=== PATIENT | female | born 1995 | race Caucasian/White ===

== ENCOUNTER 2024-03-23 22:54 | Emergency (ER) | payer SELFPAY ==
[2024-03-23 22:58] VITALS: BP 144/87; PULSE 96; TEMP 37.1; O2SAT 99; BMI 44.4
--- NOTE | 2024-03-23 23:14 | ED_ITS ---
HPI - General Chief complaint: Vaginal Bleeding Stated complaint: Time Seen by Provider: 03/23/24 23:03 Source: patient Mode of arrival: walk-in Limitations: no limitations History of Present Illness HPI Narrative: [id number] presents after passing large clots at work. States she is 13 weeks . no complications or pain until tonight. Convinced she had a miscarriage and wanted to be checked. Otherwise no complaint Related Data Home Medications ?Medication ?Instructions ?Recorded ?Confirmed No Known Home Medications 03/23/24 03/23/24 Allergies Allergy/AdvReac Type Severity Reaction Status Date / Time sulfamethoxazole Allergy Unknown Hives Verified 03/23/24 23:02 [From Bactrim] trimethoprim [From Bactrim] Allergy Unknown Hives Verified 03/23/24 23:02 Review of Systems ROS Status of ROS 10 or more systems reviewed and unremark able except as noted in history and below Exam Constitutional Vital Signs, click to edit/add: Last Vital Signs Temp 98.7 F 03/23/24 22:58 Pulse 96 H 03/23/24 22:58 Resp 18 03/23/24 22:58 BP 144/87 H 03/23/24 22:58 Pulse Ox 99 03/23/24 22:58 O2 Del Method Room Air 03/23/24 22:58 Common normals: no apparent distress, average body habitus, oriented x3, no limitations, healthy appearing, alert and well nourished [facility] Common normals: normocephalic and head/scalp atraumatic Eye Common normals: EOMs intact bilaterally and conjunctivae normal Respiratory Common normals: normal respiratory effort, no retractions and no use of accessory muscles Cardio Common normals: regular rate, regular rhythm, S1 normal heart sound and S2 normal heart sound GI Common normals: Normal to inspection, nondistended, normoactive bowel sounds present and soft to palpation Other: mod amount of blood in the vaginal vault . no acitive bleeding normal exam external genitalia Extremity Common normals: normal to inspection and full ROM Neuro Common normals: oriented x3, CN's II-XII intact bilaterally, moves all extremities and no focal motor deficits Psych Appearance: grossly normal Course Vital Signs Vital signs: Vital Signs Temperature 98.7 F 03/23/24 22:58 Pulse Rate 96 H 03/23/24 22:58 Respiratory Rate 18 03/23/24 22:58 Blood Pressure 144/87 H 03/23/24 22:58 Pulse Oximetry 99 03/23/24 22:58 Oxygen Delivery Method Room Air 03/23/24 22:58 Temperature 98.7 F 03/23/24 22:58 Pulse Rate 96 H 03/23/24 22:58 Respiratory Rate 18 03/23/24 22:58 Blood Pressure 144/87 H 03/23/24 22:58 Pulse Oximetry 99 03/23/24 22:58 Oxygen Delivery Method Room Air 03/23/24 22:58 MDM - OB/Uterine Contractions MDM Narrative Medical decision making narrative: [id number] 13 weeks presents after passing large clots of blood at work. Speculum exam with residual blood in the vault. Otherwise exam unremarkable. VSS and H/H normal . Patient given Rhogam shot and discharged. she will follow up with her OB tomorrow. Strongly suspect miscarriage Lab Data Labs: Lab Results 03/23/24 Range/Units 23:20 WBC 9.0 (4.0-11.0) 10^3/uL RBC 4.31 (4.20-5.40) 10^6/uL Hgb 12.2 (12.0-16.0) g/dL Hct 37.4 (36.0-48.0) % MCV 86.8 (81.0-99.0) fL MCH 28.3 (26.7-34.0) pg MCHC 32.6 (29.9-35.2) g/dL RDW 14.4 (11.0-15.0) % Plt Count 224 (150-450) 10^3/uL MPV 11.8 (9.5-13.5) fL Neut % (Auto) 58.0 (43.0-75.0) % Lymph % (Auto) 34.4 (20.5-60.0) % [place] % (Auto) 6.6 (1.7-12.0) % Eos % (Auto) 0.6 L (0.9-7.0) % Baso % (Auto) 0.2 (0.2-2.0) % Neut # (Auto) 5.2 (1.4-6.5) 10^3/uL Lymph # (Auto) 3.1 (1.2-3.8) 10^3/uL [place] # (Auto) 0.6 (0.3-0.8) 10^3/uL Eos # (Auto) 0.1 (0.0-0.7) 10^3/uL Baso # (Auto) 0.0 (0.0-0.1) 10^3/uL Abs Immat Gran (auto) 0.02 (0.00-0.03) 10^3/uL Imm/Tot Granulo (auto) 0.2 (0.0-0.5) % Sodium 136 (136-145) mmol/L Potassium 3.7 (3.5-5.1) mmol/L Chloride 102 (98-107) mmol/L Carbon Dioxide 24.6 (21.0-32.0) mmol/L Anion Gap 13.1 BUN 9.0 (7.0-18.0) mg/dL Creatinine 0.68 (0.55-1.02) mg/dL Est GFR ( Amer) >60 (>=60) Est GFR (Non-Af Amer) >60 (>=60) BUN/Creatinine Ratio 13.2 Glucose 98 (74-106) mg/dL Calcium 8.8 (8.5-10.1) mg/dL Discharge Plan Discharge Stand Alone Forms: Portal Instructions Chief Complaint: Vaginal Bleeding Clinical Impression: Threatened Patient Disposition: Home, Self-Care Prescriptions / Home Meds: No Action No Known Home Medications Print Language: [place] Instructions: Threatened Miscarriage (ED) Additional Instructions: follow up with your doctor tomorrow as discussed Referrals: XIAO STILL [Primary Care Provider] - 1 week
[2024-03-23 23:29] LABS: Basophils Percent Auto 0.2 % (0.2-2.0); Eosinophils Absolute Auto 0.1 10^3/uL (0.0-0.7); Eosinophils Percent Auto 0.6 % (0.9-7.0); Hematocrit 37.4 % (36.0-48.0); Hemoglobin 12.2 g/dL (12.0-16.0); Immature Granulocytes Abs Auto 0.02 10^3/uL (0.00-0.03); Immature Granulocytes Pct Auto 0.2 % (0.0-0.5); Lymphocytes Absolute Auto 3.1 10^3/uL (1.2-3.8); Lymphocytes Percent Auto 34.4 % (20.5-60.0); Mean Corpuscular HGB Conc 32.6 g/dL (29.9-35.2); Mean Corpuscular Hemoglobin 28.3 pg (26.7-34.0); Mean Corpuscular Volume 86.8 fL (81.0-99.0); Mean Platelet Volume 11.8 fL (9.5-13.5); Monocytes Absolute Auto 0.6 10^3/uL (0.3-0.8); Monocytes Percent Auto 6.6 % (1.7-12.0); Neutrophils Absolute Auto 5.2 10^3/uL (1.4-6.5); Platelet Count 224 10^3/uL (150-450); Red Blood Count 4.31 10^6/uL (4.20-5.40); Red Cell Distribution Width 14.4 % (11.0-15.0)
[2024-03-23 23:38] LABS: Anion Gap 13.1; BUN Creatinine Ratio 13.2; Calcium 8.8 mg/dL (8.5-10.1); Carbon Dioxide 24.6 mmol/L (21.0-32.0); Chloride 102 mmol/L (98-107); Estimated GFR (African America >60 (>=60); Estimated GFR (Non-African Ame >60 (>=60); Glucose 98 mg/dL (74-106); Potassium 3.7 mmol/L (3.5-5.1); Sodium 136 mmol/L (136-145)
[2024-03-23] MEDS: RHO(D) IMMUNE GLOBULIN 1,500 UNIT SYRINGE 1500 UNIT IM (23:54)
[2024-03-24 00:33] LABS: HCG Quantitative 32806 mIU/mL
== END 2024-03-24 00:07 | disposition home or self-care (01) ==
PROVIDERS: Emergency Provider Internal Medicine; PCP Family Medicine
DX: O20.0 Threatened abortion (principal); Z3A.13 13 weeks gestation of pregnancy
CPT/HCPCS: 36415; 80048; 84702; 84703; 85025; 96372; 99284; J2790

== ENCOUNTER 2024-07-24 07:29 | Outpatient (RCR) | payer OTHER, SELFPAY ==
--- NOTE | 2024-07-24 11:35 | US_ITS ---
[address] [address] Patient Name: KARIME CARRION MRN: [id number] date: 1995 Sex: F Assigned Patient Location: US Current Patient Location: US Accession/Order Number: [id number] Exam Date: 07/24/2024 11:40 Report Date: 07/24/2024 12:58 At the request of: RAGHU BLACK Procedure: US OB growth EXAMINATION: US OB growth HISTORY: Related Condition In Second Trimester COMPARISON: No relevant comparison available. FINDINGS: Heart Rate: 131.71 bpm Amniotic Fluid Volume: 17.0 cm, largest fluid pocket 4.7 cm Number: 1 Position: Cephalic presentation, longitudinal lie BIOMETRY: BPD: 7.72 cm; 31 weeks 0 days; 37.30 % HC: 28.60 cm; 31 weeks 3 days; 24.70 % AC: 26.04 cm; 31 weeks 1 day; 23.30 % FL: 5.56 cm; 29 weeks 2 days; 4.80 % EFW: 1507.09 g; 13.60 %, 3 lbs. 5 oz. FL/AC: 21.36 FL/BPD: 72.09 HC/AC: 1.10 GESTATIONAL AGE: Age by EDC: 31 weeks 0 days [place]ILLARY by EDC: 2024-09-25 Age by US: 30 weeks 3 days HILLARY by US: 2024-09-29 US/US OB growth IMPRESSION: Femur length at the 5th percentile, otherwise normal interval growth Electronically authenticated by: LESLY SARAVIA Date: 07/24/2024 12:58
[2024-07-24 13:00] VITALS: BP 131/79; PULSE 87; TEMP 36.6; O2SAT 96
[2024-07-24] MEDS: RHO(D) IMMUNE GLOBULIN 1,500 UNIT SYRINGE 1500 UNIT IM (13:16)
== END 2024-07-28 08:38 | disposition home or self-care (01) ==
LOC: US 07:29
PROVIDERS: PCP Family Medicine; Visit Provider Midwife
DX: O26.893 Other specified pregnancy related conditions, third trimester (principal); Z67.91 Unspecified blood type, Rh negative; O26.93 Pregnancy related conditions, unspecified, third trimester; Z3A.31 31 weeks gestation of pregnancy
CPT/HCPCS: 36415; 76816; 86850; 86900; 86901; 96372; J2791

== ENCOUNTER 2024-07-31 15:54 | Observation (INO) | payer OTHER, SELFPAY ==
[2024-07-31 16:11] VITALS: BP 137/72; PULSE 88; TEMP 37.1
--- NOTE | 2024-07-31 21:00 | US_ITS ---
The [address] [address] Patient Name: KARIME CARRION MRN: [id number] date: 1995 Sex: F Assigned Patient Location: [facility] Current Patient Location: Accession/Order Number: [id number] Exam Date: 07/31/2024 21:10 Report Date: 08/01/2024 01:03 At the request of: RAGHU BLACK Procedure: US OB placenta US PELVIS: OB Greater than 14 weeks HISTORY: 28 year old G 5 P 4 AB 0 female presents for US evaluation. Patient fell at 1430. LMP: Not provided TECHNIQUE: Ultrasound performed of the pelvis using static images with rankin scale, M-mode and color doppler. This exam is performed in the emergency room setting to evaluate viability. As such, it is not protocoled to evaluate anatomy as that should be performed on an outpatient basis at the patient's [facility] office. COMPARISON: None. FINDINGS: Summary: Number of Fetuses: Single fetus in cephalic position. Placenta: Anterior Grade 1. Placental lakes demonstrated. heart: 131 bpm. Cervix: Cervix not well visualized due to shadowing. SIMRAN: Q1: 2.9 cm Q2: 7.2 cm Q3: 2.5 cm Q4: 5.7 cm Total SIMRAN: 18.3 cm. (Normal 8-18 cm)* Largest pocket: (less than 8 cm) US/US OB placenta IMPRESSION: 1. Viable Dougherty fetus IUP 2. SIMRAN equals 18.3 cm Electronically authenticated by: NEIL SADLER Date: 08/01/2024 01:03
== END 2024-07-31 22:40 | disposition home or self-care (01) ==
LOC: FBC 15:57
PROVIDERS: Admitting Provider Midwife; PCP Family Medicine; Visit Provider Midwife
DX: Z03.79 Encounter for other suspected maternal and fetal conditions ruled out (principal)
CPT/HCPCS: 76815; G0378; G0379

== ENCOUNTER 2024-09-15 10:04 | Outpatient (REF) | payer OTHER, SELFPAY ==
[2024-09-17 16:09] LABS: Ova + Parasite Exam Final report (.)
--- OUTSIDE RECORDS SUMMARY | 2024-09-18 10:26 | XMS_ITS | CCD ---
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 URS [facility] Absolute Jewell # 0.75 [facility] RS [facility] Basophils (Bld) [#/Vol] 0.04 10*3/uL [facility] Basophils/100 WBC (Bld) 1 % 0 - 2 % [facility] Eosinophils/100 WBC (Bld) 4 % 1 - 4 % [facility] Hematocrit (Bld) [Volume fraction] 42.0 % 36.3 - 47.1 % [facility] Hemoglobin (Bld) [Mass/Vol] 13.7 g/dL 11.9 - 15.1 g/dL [facility] Immature granulocytes/100 WBC (Bld) 0 % 0 [facility] Lymphocytes/100 WBC (Bld) 32 % 24 - 43 % [facility] MCH (RBC) [Entitic mass] 28.6 pg 25.2 - 33.5 pg [facility] MCHC (RBC) [Mass/Vol] 32.6 g/dL 28.4 - 34.8 g/dL [facility] MCV (RBC) [Entitic vol] 87.7 fL 82.6 - 102.9 fL [facility] Monocytes/100 WBC (Bld) 9 % 3 - 12 % [facility] NRBC Automated 0.0 0.0 per 100 WBC [facility] Platelet distribution width (Bld) [Ratio] 13.7 % 11.8 - 14.4 % [facility] Platelet mean volume (Bld) [Entitic vol] 10.8 fL 8.1 - 13.5 fL [facility] Platelets (Bld) [#/Vol] 283 10*3/uL [facility] RBC (Bld) [#/Vol] 4.79 10*6/uL 3.95 - 5.1 1 m/uL [facility] Segmented neutrophils/100 WBC (Bld) 54 % 36 - 65 % [facility] Segs Absolute 4.89 [facility] WBC (Bld) [#/Vol] 8.9 10*3/uL [facility] CBC with Diffon 10-14-2022 Abs. Basophil 0.04 k/uL Normal 0.00-0.20 [facility] Comment on above: Performed By: #### T YS #### [facility] [address] [place] [address] [employer] Operator: Kali Gray MD Abs.Imm.Granulocyte <0.03 Normal 0.00-0.30 [facility] Comment on above: Performed By: #### T YS #### [address] [place], [place] [id number] [employer] Operator: Kali Gray MD Abs.Neutrophil (Seg) 4.89 k/uL Normal 1.50-8.10 [facility] Comment on above: Performed By: #### T YS #### [address] [place], [place] [id number] [employer] Operator: Kali Gray MD Basophils/100 WBC (Bld) 1 % Normal 0-2 [facility] Comment on above: Performed By: #### T YS #### [address] [place], [place] [phone] [employer] Operator: Kali Gray MD Eosinophils (Bld) [#/Vol] 0.36 10*3/uL Normal 0.00-0.44 [facility] Comment on above: Performed By: #### T YS #### [facility] [address] [place] [address] [place] [address] [employer] Operator: Kali Gray MD Eosinophils/100 WBC (Bld) 4 % Normal 1-4 [facility] Comment on above: Performed By: #### T YS #### [facility] [address] [place] [address] Dr. [place], [facility]83 [employer] Operator: Kali Gray MD Erythrocyte distribution width (RBC) [Ratio] 13.7 % Normal 11.8-14.4 [facility] Comment on above: Performed By: #### T YS #### [facility] [address] [place] [address] Dr. [place], [facility] [employer] Operator: Kali Gray MD Hematocrit (Bld) [Volume fraction] 42.0 % Normal 36.3-47.1 [facility] Comment on above: Performed By: #### T YS #### [address] [place], [facility]83 [employer] Operator: Kali Gray MD Hemoglobin (Bld) [Mass/Vol] 13.7 g/dL Normal 11.9-15.1 [facility] Comment on above: Performed By: #### T YS #### [facility] [address] [place] [address] Dr. [place], [facility]83 [employer] Operator: Kali Gray MD Immature granulocytes/100 WBC (Bld) 0 % Normal 0 [facility] Comment on above: Performed By: #### T YS #### [address] [place], [facility]83 [employer] Operator: Kali Gray MD Lymphocytes (Bld) [#/Vol] 2.80 10*3/uL Normal 1.10-3.70 [facility] Comment on above: Performed By: #### T YS #### [facility] [address] [place] [address] Dr. [place], [facility]83 [employer] Operator: Kali Gray MD Lymphocytes/100 WBC (Bld) 32 % Normal 24-43 [facility] Comment on above: Performed By: #### T YS #### [facility] [address] [place] [address] [place]. [place], [place] [id number] [employer] Operator: Kali Gray MD MCH (RBC) [Entitic mass] 28.6 pg Normal 25.2-33.5 [facility] Comment on above: Performed By: #### T YS #### [facility] [address] [place], [place] [address] [employer] Operator: Kali Gray MD MCHC (RBC) [Mass/Vol] 32.6 g/dL Normal 28.4-34.8 [facility] Comment on above: Performed By: #### T YS #### [facility] [address] [place], [facility]83 [employer] Operator: Kali Gray MD MCV (RBC) [Entitic vol] 87.7 fL Normal 82.6-102.9 [facility] Comment on above: Performed By: #### T YS #### [address] [place], [facility]83 [employer] Operator: Kali Gray MD Monocytes (Bld) [#/Vol] 0.75 10*3/uL Normal 0.10-1.20 [facility] Comment on above: Performed By: #### T YS #### [facility] [address] [place] [address] Dr. [place], [facility]83 [employer] Operator: Kali Gray MD Monocytes/100 WBC (Bld) 9 % Normal 3-12 [facility] Comment on above: Performed By: #### T YS #### [facility] [address] [place] [address] Dr. [place], [facility]83 [employer] Operator: Kali Gray MD Neutrophil (Seg) 54 % Normal 36-65 [facility] Comment on above: Performed By: #### T YS #### [facility] [address] [place], [facility]83 [employer] Operator: Kali Gray MD NRBC Automated 0.0 per 100 WBC Normal 0.0 [facility] Comment on above: Performed By: #### T YS #### [facility] [address] [place], [facility]83 [employer] Operator: Kali Gray MD Platelet mean volume (Bld) [Entitic vol] 10.8 fL Normal 8.1-13.5 [facility] Comment on above: Performed By: #### T YS #### [facility] [address] [place] [address] [employer] Operator: Kali Gray MD Platelets (Bld) [#/Vol] 283 10*3/uL Normal 138-453 [facility] Comment on above: Performed By: #### T YS #### [facility] [address] [place] [address] [employer] Operator: Kali Gray MD RBC (Bld) [#/Vol] 4.79 10*6/uL Normal 3.95-5.11 [facility] Comment on above: Performed By: #### T YS #### [facility] [address] [place] [address] [employer] Operator: Kali Gray MD WBC (Bld) [#/Vol] 8.9 10*3/uL Normal 3.5-11.3 [facility] Comment on above: Performed By: #### T YS #### [address] [place] [address] Eth[employer] Plant Operator: Kali Gray MD CT CHEST PULMONARY EMBOLISM W CONTRASTon 10-14-2022 CT CHEST PULMONARY EMBOLISM W CONTRAST EXAMINATION: CTA OF THE CHEST 10/14/2022 8:56 pm TECHNIQUE: CTA of the chest was performed after the administration of intravenous contrast. Multiplanar reformatted images are provided for review. MIP images are provided for review. Automated exposure control, iterative reconstruction, and/or weight based adjustment of the mA/kV was utilized to reduce the radiation dose to as low as reasonably achievable. COMPARISON: Chest radiograph 08/06/2012 HISTORY: ORDERING SYSTEM PROVIDED HISTORY: Pain to mid chest and Upper Left chest, worse with inspiration, elevated ddimer TECHNOLOGIST PROVIDED HISTORY: Pain to mid chest and Upper Left chest, worse with inspiration, elevated ddimer Decision Support Exception - unselect if not a suspected or confirmed emergency medical condition->Emergency Medical Condition (MA) FINDINGS: PULMONARY ARTERIES: Mild dilation of the pulmonary trunk out of proportion with the ascending thoracic aorta. Dilation of intrapulmonary branches out of proportion with accompanying bronchi. Adequately opacified for evaluation. No filling defects consistent with emboli. MEDIASTINUM: Mild cardiomegaly. Moderate right ventricular hypertrophy. Mild to moderate concentric left ventricular hypertrophy. No flattening of the interventricular septum. Trace to small pericardial effusion with fluid extending into some pericardial recesses. No mediastinal nor hilar lymphadenopathy. LUNGS/PLEURA: Patent central airways. Minimal to mild bronchial wall thickening most prominent centrally. 0.5 cm 0.3 cm noncalcified solid nodule in the subpleural anterior basilar segment of the right lower lobe (series 3 image 64). Minimal gravity dependent atelectasis in the right lower lobe. Slightly more prominent passive atelectasis in the left lower lobe. Trace left pleural effusion. No pneumothoraces nor right pleural effusion. UPPER ABDOMEN: Suspected diffuse hepatic steatosis and hepatomegaly. SOFT TISSUES/BONES: No supraclavicular nor axillary lymphadenopathy. No acute fractures nor suspicious bony lesions. IMPRESSION: 1. No findings of pulmonary embolism. 2. Cardiovascular findings suggestive of pulmonary hypertension. 3. Minimal to mild bronchial wall thickening potentially due to pulmonary vascular congestion, reactive airways disease, or bronchitis. 4. Trace left pleural effusion and trace to small pericardial effusion. 5. A 0.4 cm solid nodule in the subpleural right lower lobe is likely benign and may be a juxtapleural lymph node. No dedicated follow-up is recommended per the Fleischner Society recommendations for incidental pulmonary nodules given patient age less than 35 years and lack of suspicious features. 6. Suspected hepatic steatosis. Interpreted by: Igor Varela MD Signed by: Igor Varela MD 10/14/22 Final result Normal [facility] 1. No findings of pulmonary embolism. 2. Cardiovascular findings suggestive of pulmonary hypertension. 3. Minimal to mild bronchial wall thickening potentially due to pulmonary vascular congestion, reactive airways disease, or bronchitis. 4. Trace left pleural effusion and trace to small pericardial effusion. 5. A 0.4 cm solid nodule in the subpleural right lower lobe is likely benign and may be a juxtapleural lymph node. No dedicated follow-up is recommended per the Fleischner Society recommendations for incidental pulmonary nodules given patient age less than 35 years and lack of suspicious features. 6. Suspected hepatic steatosis. [facility] EXAMINATION: CTA OF THE CHEST 10/14/2022 8:56 pm TECHNIQUE: CTA of the chest was performed after the administration of intravenous contrast. Multiplanar reformatted images are provided for review. MIP images are provided for review. Automated exposure control, iterative reconstruction, and/or weight based adjustment of the mA/kV was utilized to reduce the radiation dose to as low as reasonably achievable. COMPARISON: Chest radiograph 08/06/2012 HISTORY: ORDERING SYSTEM PROVIDED HISTORY: Pain to mid chest and Upper Left chest, worse with inspiration, elevated ddimer TECHNOLOGIST PROVIDED HISTORY: Pain to mid chest and Upper Left chest, worse with inspiration, elevated ddimer Decision Support Exception - unselect if not a suspected or confirmed emergency medical condition->Emergency Medical Condition (MA) FINDINGS: PULMONARY ARTERIES: Mild dilation of the pulmonary trunk out of proportion with the ascending thoracic aorta. Dilation of intrapulmonary branches out of proportion with accompanying bronchi. Adequately opacified for evaluation. No filling defects consistent with emboli. MEDIASTINUM: Mild cardiomegaly. Moderate right ventricular hypertrophy. Mild to moderate concentric left ventricular hypertrophy. No flattening of the interventricular septum. Trace to small pericardial effusion with fluid extending into some pericardial recesses. No mediastinal nor hilar lymphadenopathy. LUNGS/PLEURA: Patent central airways. Minimal to mild bronchial wall thickening most prominent centrally. 0.5 cm 0.3 cm noncalcified solid nodule in the subpleural anterior basilar segment of the right lower lobe (series 3 image 64). Minimal gravity dependent atelectasis in the right lower lobe. Slightly more prominent passive atelectasis in the left lower lobe. Trace left pleural effusion. No pneumothoraces nor right pleural effusion. UPPER ABDOMEN: Suspected diffuse hepatic steatosis and hepatomegaly. SOFT TISSUES/BONES: No supraclavicular nor axillary lymphadenopathy. No acute fractures nor suspicious bony lesions. [facility] Igor Varela MD - 10/14/2022 EXAMINATION: CTA OF THE CHEST 10/14/2022 8:56 pm TECHNIQUE: CTA of the chest was performed after the administration of intravenous contrast. Multiplanar reformatted images are provided for review. MIP images are provided for review. Automated exposure control, iterative reconstruction, and/or weight based adjustment of the mA/kV was utilized to reduce the radiation dose to as low as reasonably achievable. COMPARISON: Chest radiograph 08/06/2012 HISTORY: ORDERING SYSTEM PROVIDED HISTORY: Pain to mid chest and Upper Left chest, worse with inspiration, elevated ddimer TECHNOLOGIST PROVIDED HISTORY: Pain to mid chest and Upper Left chest, worse with inspiration, elevated ddimer Decision Support Exception - unselect if not a suspected or confirmed emergency medical condition->Emergency Medical Condition (MA) FINDINGS: PULMONARY ARTERIES: Mild dilation of the pulmonary trunk out of proportion with the ascending thoracic aorta. Dilation of intrapulmonary branches out of proportion with accompanying bronchi. Adequately opacified for evaluation. No filling defects consistent with emboli. MEDIASTINUM: Mild cardiomegaly. Moderate right ventricular hypertrophy. Mild to moderate concentric left ventricular hypertrophy. No flattening of the interventricular septum. Trace to small pericardial effusion with fluid extending into some pericardial recesses. No mediastinal nor hilar lymphadenopathy. LUNGS/PLEURA: Patent central airways. Minimal to mild bronchial wall thickening most prominent centrally. 0.5 cm 0.3 cm noncalcified solid nodule in the subpleural anterior basilar segment of the right lower lobe (series 3 image 64). Minimal gravity dependent atelectasis in the right lower lobe. Slightly more prominent passive atelectasis in the left lower lobe. Trace left pleural effusion. No pneumothoraces nor right pleural effusion. UPPER ABDOMEN: Suspected diffuse hepatic steatosis and hepatomegaly. SOFT TISSUES/BONES: No supraclavicular nor axillary lymphadenopathy. No acute fractures nor suspicious bony lesions. IMPRESSION: 1. No findings of pulmonary embolism. 2. Cardiovascular findings suggestive of pulmonary hypertension. 3. Minimal to mild bronchial wall thickening potentially due to pulmonary vascular congestion, reactive airways disease, or bronchitis. 4. Trace left pleural effusion and trace to small pericardial effusion. 5. A 0.4 cm solid nodule in the subpleural right lower lobe is likely benign and may be a juxtapleural lymph node. No dedicated follow-up is recommended per the Fleischner Society recommendations for incidental pulmonary nodules given patient age less than 35 years and lack of suspicious features. 6. Suspected hepatic steatosis. [employer] Phone: Radiology Study observation (narrative) [employer] Phone: CT CHEST PULMONARY EMBOLISM W CONTRASTOrdered By: Igor Varela on 10-14-2022 [facility] Work Phone: D-Dimer Teston 10-14-2022 D-Dimer Test 2.16 mg/L FEU [facility] 0.00-0.59 [facility] Comment on above: Result Comment: When combined with a low clinical probability, a D dimer value of <0.50 mg/L FEU is considered negative for DVT and PE (negative predictive value of 98%, sensitivity of 97%). If this test is not being used to help rule out DVT and PE, then the following reference range should be utilized: 0.00 - 0.59 mg/L FEU. The D-Dimer assay is intended for use as an aid in the diagnosis of venous thromboembolism (DVT and PE) and the results should be interpreted in conjunction with the patient's medical history, clinical presentation, and other findings. Elevated levels of D-dimer activity can be seen in any state of coagulation activation and is not recommended in patients with therapeutic dose anticoagulant therapy for >24 hours, fibrinolytic therapy within the previous 7 days, trauma or surgery within the previous 4 weeks, disseminated malignancies, aortic aneurysm, sepsis, severe infections, pneumonia, severe skin infections, liver cirrhosis, advanced age, coronary disease, diabetes, and . A very low percentage of patients with DVT may yield D-dimer results below the cutoff of 0.5 mg/L FEU. This is known to be more prevalent in patients with distal DVT. Performed By: #### T YS #### [facility] [address] [place], [place] [address] Eth[employer] Plant Operator: Kali Gray MD D-Dimer, Quantitativeon 09-21 Fibrin D-dimer FEU IA (Bld) [Mass/Vol] 2.16 ug/mL High [facility] Comment on above: When combined with a low clinical probability, a D dimer value of <0.50 mg/L FEU is considered negative for DVT and PE (negative predictive value of 98%, sensitivity of 97%). If this test is not being used to help rule out DVT and PE, then the following reference range should be utilized: 0.00 - 0.59 mg/L FEU. The D-Dimer assay is intended for use as an aid in the diagnosis of venous thromboembolism (DVT and PE) and the results should be interpreted in conjunction with the patient's medical history, clinical presentation, and other findings. Elevated levels of D-dimer activity can be seen in any state of coagulation activation and is not recommended in patients with therapeutic dose anticoagulant therapy for >24 hours, fibrinolytic therapy within the previous 7 days, trauma or surgery within the previous 4 weeks, disseminated malignancies, aortic aneurysm, sepsis, severe infections, pneumonia, severe skin infections, liver cirrhosis, advanced age, coronary disease, diabetes, and . A very low percentage of patients with DVT may yield D-dimer results below the cutoff of 0.5 mg/L FEU. This is known to be more prevalent in patients with distal DVT. Interpretation and review of laboratory results Abnormal [facility] HCG Qualitative, Serumon hCG Qual Negative NEGATIVE [facility] Comment on above: Specimens with hCG l evels near the threshold of the test (25 mIU/mL) may give a negative or indeterminate result. In such cases, another test should be performed with a new specimen in 48-72 hours. If early is suspected clinically in this setting, correlation with quantitative serum b-hCG level is suggested. [employer] has confirmed the use of plasma for this test. This has not been cleared or approved by the U.S. Food and Drug Administration. The FDA has determined that such clearance is not necessary. [facility] HCG Screen, Bloodon 10-14-19 HCG Screen, Blood Negative Normal [facility] Comment on above: Result Comment: Spec imens with hCG levels near the threshold of the test (25 mIU/mL) may give a negative or indeterminate result. In such cases, another test should be performed with a new specimen in 48-72 hours. If early is suspected clinically in this setting, correlation with quantitative serum b-hCG level is suggested. [employer] has confirmed the use of plasma for this test. This has not been cleared or approved by the U.S. Food and Drug Administration. The FDA has determined that such clearance is not necessary. Performed By: #### H #### [facility] [address] [place], [place] [id number] [employer] Plant Operator: Kali Gray MD Troponinon 10-14-2022 Troponin, High Sens <6 Normal 0-14 [facility] Comment on above: Result Comment: High Sensitivity Troponin values cannot be compared with other Troponin methodologies. Performed By: #### T DELMAI #### [facility] [address] [place], [place] [id number] Eth[employer] Plant Operator: Kali Gray MD Troponin, High Sens <6 Normal 0-14 [facility] Comment on above: Result Comment: High Sensitivity Troponin values cannot be compared with other Troponin methodologies. Performed By: #### T YS #### [facility] [address] [place] [address] [employer] Operator: Kali Gray MD Troponin I.cardiac DL <= 0.01 ng/mL [Mass/Vol] ng/L 0 - 14 ng/L [facility] Comment on above: High Sensitivity Tro ponin values cannot be compared with other Troponin methodologies. [facility] Troponin I.cardiac DL <= 0.01 ng/mL [Mass/Vol] ng/L 0 - 14 ng/L [facility] Comment on above: High Sensitivity Tro ponin values cannot be compared with other Troponin methodologies. [facility] CBC AUTO DIFFon 10-10-2022 BASO # 0.0 103/ul Normal 0.0-0.1 [facility] Comment on above: Performed By: #### H BSANS #### [facility] [address] [address] [address] Jerry Frausto Basophils/100 WBC (Bld) 0.3 % Normal 0.2-2.0 [facility] Comment on above: Performed By: #### H BSANS #### [facility] [address] [address] [address] Jerry Frausto EO # 0.2 103/ul Normal 0.0-0.7 [facility] Comment on above: Performed By: #### H BSANS #### [facility] [address] [address] [address] Jerry Frausto Eosinophils/100 WBC (Bld) 1.4 % Normal 0.9-7.0 [facility] Comment on above: Performed By: #### H BSANS #### [facility] [address] [place] [address] Dr. Jerry Frausto Erythrocyte distribution width (RBC) [Ratio] 14.0 % Normal 11.0-15.0 [facility] Comment on above: Performed By: #### H BSANS #### [facility] [address] [place] [address] Dr. Jerry Frausto Hematocrit (Bld) [Volume fraction] 40.8 % Normal 36.0-48.0 [facility] Comment on above: Performed By: #### H BSANS #### [facility] [address] [place] [address] Dr. Jerry Frausto Hemoglobin (Bld) [Mass/Vol] 13.2 g/dL Normal 12.0-16.0 [facility] Comment on above: Performed By: #### H BSANS #### [facility] [facility] [address] [place] [address] Dr. Jerry Frausto IG # 0.04 10e3/ul Critically high 0.00-0.03 [facility] Comment on above: Performed By: #### H BSANS #### [facility] [address] [place] [address] Dr. Jerry Frausto IG % 0.3 % Normal 0.0-0.5 [facility] Comment on above: Performed By: #### H BSANS #### [facility] [address] [place] [address] Dr. Jerry Frausto LYMPH # 3.2 103/ul Normal 1.2-3.8 [facility] Comment on above: Performed By: #### H BSANS #### [facility] [address] [place] [address] Dr. Jerry Frausto Lymphocytes/100 WBC (Bld) 22.8 % Normal 20.5-60.0 [facility] Comment on above: Performed By: #### H BSANS #### [facility] [address] [place] [address] Dr. Jerry Frausto MANUAL DIFF REQ NO Normal [facility] Comment on above: Performed By: #### H BSANS #### [facility] [address] [address] [address] Jerry Frausto MCH (RBC) [Entitic mass] 27.4 pg Normal 26.7-34.0 [facility] Comment on above: Performed By: #### H BSANS #### [facility] [address] [place] [address] Dr. Jerry Frausto MCHC (RBC) [Mass/Vol] 32.4 g/dL Normal 29.9-35.2 [facility] Comment on above: Performed By: #### H BSANS #### [facility] [address] [place] [address] Dr. Jerry Frausto MCV (RBC) [Entitic vol] 84.8 fL Normal 81.0-99.0 [facility] Comment on above: Performed By: #### H BSANS #### [facility] [address] [place] [address] Dr. Jerry Frausto MONO # 1.2 103/ul Critically high 0.3-0.8 [facility] Comment on above: Performed By: #### H BSANS #### [facility] [address] [place] [address] Dr. Jerry Frausto Monocytes/100 WBC (Bld) 8.3 % Normal 1.7-12.0 [facility] Comment on above: Performed By: #### H BSANS #### [facility] [address] [place] [address] Dr. Jerry Frausto NEUT # 9.3 103/ul Critically high 1.4-6.5 [facility] Comment on above: Performed By: #### H BSANS #### [facility] [address] [place] [address] Dr. Jerry Frausto Neutrophils/100 WBC (Bld) 66.9 % Normal 43.0-75.0 [facility] Comment on above: Performed By: #### H BSANS #### [facility] [address] [place] [address] Dr. Jerry Frausto Platelet mean volume (Bld) [Entitic vol] 10.9 fL Normal 9.5-13.5 [facility] Comment on above: Performed By: #### H BSANS #### [facility] [address] [address] [address] Jerry Frausto PLT 274 103/ul Normal 150-450 [facility] Comment on above: Performed By: #### H BSANS #### [facility] [address] [address] [address] Jerry Frausto RBC 4.81 106/ul Normal 4.20-5.40 [facility] Comment on above: Performed By: #### H BSANS #### [facility] [address] [address] [address] Jerry Frausto WBC 13.9 103/ul Critically high 4.0-11.0 [facility] Comment on above: Performed By: #### H BSANS #### [facility] [address] [place] [address] Dr. Jerry Frausto CTA CHEST WO W CONon 023 CTA CHEST WO W CON EXAM: CTA CHEST WO W CON TECHNIQUE: CT angiogram with contrast performed of the chest including multi planar reformatted images and maximum intensity projection images. Dose reduction techniques were achieved by using automated exposure control and/or adjustment of mA and/or kV according to patient size and/or use of iterative reconstruction technique. HISTORY: Pulmonary embolism COMPARISON: None. __ FINDINGS: Neck and Axilla: No lower neck or axillary lymphadenopathy. Mediastinum and Rocio: No hilar or mediastinal lymphadenopathy. Esophagus is unremarkable. Heart and Major Vessels: The heart appears unremarkable for size without pericardial effusion. The aorta and central pulmonary arteries are unremarkable for size.No pulmonary chuckling defect identified to suggest acute pulmonary embolism. Lung Block: No acute consolidation. Mosaic attenuation of the lower lung block appears to be due to expiratory phase of breathing. Pleural Cavities: No significant pleural effusion. No pneumothorax. Chest Wall: No acute abnormality. Upper Abdomen: The liver is enlarged and diffusely low-attenuation suggesting steatosis. IMPRESSION: No evidence for acute consolidation. No evidence for acute pulmonary embolism. Electronically authenticated by: ANUSHA BOND Date: 2022-10-10 20:23 Normal [facility] D-DIMERon 10-10-2022 D-DIMER 0.75 mg/L FEU Critically high <=0.59 [facility] Comment on above: Performed By: #### H BSANS #### [facility] [address] [address] [address] Jerry Frausto D-DIMER COMMENTS SEE BELOW Normal [facility] Comment on above: Result Comment: Incr eases in D-Dimer concentration observed with thromboembolic events can be variable due to localization, size, and age of the thrombus. Therefore, a thromboembolic event cannot be diagnosed with certainty on the basis of the reference range. D-Dimers may also be elevated for a variety of disorders including: advanced age, , coronary disease, cancer, liver disease, infection, inflammation, hematoma, DIC, trauma, post-surgery, diabetes, thrombolytic or anticoagulant therapy, stress, and generalized hospitalization. Performed By: #### H BSANS #### [facility] [address] [place] [address] Dr. Jerry Frausto PREG HCG QUALon 10-10-2022 , QUAL Negative Normal NEGATIVE [facility] Comment on above: Performed By: #### P REG #### [facility] [address] [place] [address] Dr. Jerry Frausto PROF 14(COMP METB)on 023 Albumin [Mass/Vol] 4.1 g/dL Normal 3.4-5.0 [facility] Comment on above: Performed By: #### C MP, TSH, HSTROPN #### [facility] [address] [place] [address] Dr. Jerry Frausto Albumin/Globulin [Mass ratio] 1.0 {ratio} Normal [facility] Comment on above: Performed By: #### C MP, TSH, HSTROPN #### [facility] [address] [place] [address] Dr. Jerry Frausto ALP [Catalytic activity/Vol] 93 U/L Normal 46-116 [facility] Comment on above: Performed By: #### C MP, TSH, HSTROPN #### [facility] [address] [place] [address] Dr. Jerry Frausto ALT [Catalytic activity/Vol] 47 U/L Normal 14-59 [facility] Comment on above: Performed By: #### C MP, TSH, HSTROPN #### [facility] [address] [place] [address] Dr. Jerry Frausto Anion gap [Moles/Vol] 14.4 mmol/L Normal [facility] Comment on above: Performed By: #### C MP, TSH, HSTROPN #### [facility] [address] [place] [address] Dr. Jerry Frausto AST [Catalytic activity/Vol] 34 U/L Normal 15-37 [facility] Comment on above: Performed By: #### C MP, TSH, HSTROPN #### [facility] [address] [place] [address] Dr. Jerry Frausto Bilirubin [Mass/Vol] 0.3 mg/dL Normal 0.2-1.0 [facility] Comment on above: Performed By: #### C MP, TSH, HSTROPN #### [facility] [address] [place] [address] Dr. Jerry Frausto Calcium [Mass/Vol] 9.6 mg/dL Normal 8.5-10.1 [facility] Comment on above: Performed By: #### C MP, TSH, HSTROPN #### [facility] [address] [place] [address] Dr. Jerry Frausto Chloride [Moles/Vol] 101 mmol/L Normal 98-107 [facility] Comment on above: Performed By: #### C MP, TSH, HSTROPN #### [facility] [address] [place] [address] Dr. Jerry Frausto CO2 [Moles/Vol] 28.3 mmol/L Normal 21.0-32.0 [facility] Comment on above: Performed By: #### C MP, TSH, HSTROPN #### [facility] [address] [place] [address] Dr. Jerry Frausto Creatinine [Mass/Vol] 0.85 mg/dL Normal 0.55-1.02 [facility] Comment on above: Performed By: #### C MP, TSH, HSTROPN #### [facility] [address] [address] [address] Jerry Frausto EGFR-AF JAMAICAN >60 Normal >=60 [facility] Comment on above: Performed By: #### C MP, TSH, HSTROPN #### [facility] [address] [address] [address] Jerry Frausto EGFR-NON AF JAMAICAN >60 Normal >=60 [facility] Comment on above: Performed By: #### C MP, TSH, HSTROPN #### [facility] [address] [address] [address] Jerry Frausto Globulin (S) [Mass/Vol] 4.3 g/dL Normal [facility] Comment on above: Performed By: #### C MP, TSH, HSTROPN #### [facility] [address] [address] [address] Jerry Frausto Glucose [Mass/Vol] 109 mg/dL Critically high 74-106 [facility] Comment on above: Performed By: #### C MP, TSH, HSTROPN #### [facility] [address] [address] [address] Jerry Frausto Potassium [Moles/Vol] 3.7 mmol/L Normal 3.5-5.1 [facility] Comment on above: Performed By: #### C MP, TSH, HSTROPN #### [facility] [address] [address] [address] Jerry Frausto Protein [Mass/Vol] 8.4 g/dL Critically high 6.4-8.2 [facility] Comment on above: Performed By: #### C MP, TSH, HSTROPN #### [facility] [address] [address] [address] Jerry Frausto Sodium [Moles/Vol] 140 mmol/L Normal 136-145 [facility] Comment on above: Performed By: #### C MP, TSH, HSTROPN #### [facility] [address] [place] [address] Dr. Jerry Frausto Urea nitrogen [Mass/Vol] 14.0 mg/dL Normal 7.0-18.0 [facility] Comment on above: Performed By: #### C MP, TSH, HSTROPN #### [facility] [address] [place] [address] Dr. Jerry Frausto Urea nitrogen/Creatinine [Mass ratio] 16.5 mg/mg Normal [facility] Comment on above: Performed By: #### C MP, TSH, HSTROPN #### [facility] [address] [place] [address] Dr. Jerry Frausto PROTIMEon 10-10-2022 INR Coag (PPP) [Relative time] {INR} Normal [facility] Comment on above: Performed By: #### H BSANS #### [facility] [address] [place] [address] Dr. Jerry Frausto INR GUIDELINES SEE BELOW Normal [facility] Comment on above: Result Comment: ARAM RED INR: 2.0 - 3.0 CONDITIONS NOT LISTED BELOW 2.5 - 3.5 FOR PROSTHETIC HEART VALVE REPLACEMENT 2.5 - 3.5 RECURRENT THROMBOSIS Performed By: #### H BSANS #### [facility] [address] [place] [address] Dr. Jerry Frausto PT Coag (PPP) [Time] 9.7 s Normal 9.0-11.6 [facility] Comment on above: Performed By: #### H BSANS #### [facility] [address] [place] [address] Dr. Jerry Frausto PTTon 10-10-2022 aPTT Coag (Bld) [Time] 21.0 s Critically low 22.3-36.2 [facility] Comment on above: Performed By: #### H BSANS #### [facility] [address] [place] [address] Dr. Jerry Frausto TROPONIN, HIGH SENSITIVITYon 10-10-2022 HSTROP 5.9 pg/mL Normal 4.0-51.3 [facility] Comment on above: Result Comment: CUT- OFF POINTS HAVE BEEN ESTABLISHED BASED ON THE FOURTH UNIVERSAL DEFINITIONS OF MYOCARDIAL INFARCTION. THE UPPER REFERENCE LIMIT (URL) OF TROPONIN, DEFINED THE 99TH PERCENTILE OF cTnI DISTRIBUTION IN A REFERENCE POPULATION, HAS BEEN CONFIRMED THE DECISION THRESHOLD FOR AR DIAGNOSIS. Performed By: #### C MP, TSH, HSTROPN #### [facility] [address] [address] [address] Jerry Frausto TSHon 10-10-2022 TSH 2.040 uIU/mL Normal 0.358-3.740 [facility] Comment on above: Performed By: #### C MP, TSH, HSTROPN #### [facility] [address] [place] [address] Dr. Jerry Frausto HIV 1 AND 2 WITH REFLEXon Final Interpretation Negative Normal [facility] Comment on above: Result Comment: HIV antibodies were NOT confirmed and HIV-1 and HIV-2 RNA was NOT detected. No laboratory evidence of HIV Infection. Possible biologic false positive. Performed at: CB Performed By: #### H IV12 #### [facility] [address] [place] [address] Dr. Jerry Frausto HIV 1 Ab Non-Reactive Normal Non Reactive [facility] Comment on above: Performed By: #### H IV12 #### [facility] [address] [place] [address] Dr. Jerry Frausto HIV 1 RNA KAREN+probe [#/Vol] Non-Reactive Normal Non Reactive [facility] Comment on above: Result Comment: Perf ormed at: BN Performed By: #### H IV12 #### [facility] [address] [place] [address] Dr. Jerry Frausto HIV 2 Ab Non-Reactive Normal Non Reactive [facility] Comment on above: Performed By: #### H IV12 #### [facility] [address] [place] [address] Dr. Jerry Frausto HIV Screen 4th Generation wRfx Preliminary Reactive Normal Non Reactive [facility] Comment on above: Result Comment: Plea se refer to the Final Interpretation. Results reactive by HIV Antigen/Antibody EIA must be confirmed by the HIV testing algorithm to be considered indicative of a true HIV infection. Performed By: #### H IV12 #### [facility] [address] [place] [address] Dr. Jerry Frausto HIV-2 RNA Non-Reactive Normal Non Reactive [facility] Comment on above: Result Comment: Perf ormed at: BN Performed By: #### H IV12 #### [facility] [address] [place] [address] Dr. Jerry Frausto Interpretation: Negative Normal [facility] Comment on above: Result Comment: See RNA Reflex. Performed By: #### H IV12 #### [facility] [address] [place] [address] Dr. Jerry Frausto HIV 1 AND 2 WITH REFLEXon Final Interpretation NOTALG Normal [facility] Comment on above: Result Comment: Test ing algorithm could not be completed. Infection unconfirmed. HIV-1 and HIV-2 RNA testing is required to confirm HIV infection. RNA testing could not be completed. Please submit a new sample for test [id number] HIV-1/HIV-2 Qualitative RNA to confirm a diagnosis. Performed at: CB Performed By: #### H BSANS #### [facility] [address] [place] [address] Dr. Jerry Frausto HIV 1 Ab Non-Reactive Normal Non Reactive [facility] Comment on above: Performed By: #### H BSANS #### [facility] [address] [place] [address] Dr. Jerry Frausto HIV 2 Ab Non-Reactive Normal Non Reactive [facility] Comment on above: Performed By: #### H BSANS #### [facility] [address] [place] [address] Dr. Jerry Frausto HIV Screen 4th Generation wRfx Preliminary Reactive Normal Non Reactive [facility] Comment on above: Result Comment: Plea se refer to the Final Interpretation. Results reactive by HIV Antigen/Antibody EIA must be confirmed by the HIV testing algorithm to be considered indicative of a true HIV infection. Performed By: #### H BSANS #### [facility] [address] [place] [address] Dr. Jerry Frausto HIV-1 RNA QNSTST Normal [facility] Comment on above: Result Comment: Test not performed. Insufficient specimen to perform or complete analysis. contacted Nicole Prescott at your facility on 04-28-2022 Performed at: BN Performed By: #### H BSANS #### [facility] [address] [place] [address] Dr. Jerry Frausto HIV-2 RNA QNSTST Normal [facility] Comment on above: Result Comment: Test not performed. Insufficient specimen to perform or complete analysis. contacted Nicole Prescott at your facility on 04-28-2022 Performed at: BN Performed By: #### H BSANS #### [facility] [address] [place] [address] Dr. Jerry Frausto Interpretation: Negative Normal [facility] Comment on above: Result Comment: See RNA Reflex. Performed By: #### H BSANS #### [facility] [address] [place] [address] Dr. Jerry Frausto HEPATITIS B SURFACE ANTIBODY , QUANTon 05-01-2022 Hepatitis B Surf AB Quant <3.1 Critically low Immunity>9.9 [facility] Comment on above: Result Comment: Stat us of Immunity Anti-HBs Level Inconsistent with Immunity 0.0 - 9.9 Consistent with Immunity >9.9 Performed By: #### H EPBSRF #### [facility] [address] [place] [address] Dr. Jerry Frausto HEP B SURFACE ANTIGEN SCREEN on 04-26-2022 HBsAg Screen Negative Normal Negative [facility] Comment on above: Performed By: #### H BSANS #### [facility] [address] [place] [address] Dr. Jerry Frausto HEPATITIS C ANTIBODYon 04-26 Hep C Virus Ab <0.1 Normal 0.0-0.9 [facility] Comment on above: Result Comment: Nega tive: < 0.8 Indeterminate: 0.8 - 0.9 Positive: > 0.9 . HCV antibody alone does not differentiate between previous resolved infection and active infection. The CDC and current clinical guidelines recommend that a positive HCV antibody result be followed up with an HCV RNA test to support the diagnosis of acute HCV infection. [facility] Virus (HCV) RNA, Diagnosis, KAREN (502177) and Hepatitis C Virus (HCV) Antibody with reflex to Quantitative Real-time PCR (457236). Performed By: #### H BSANS #### [facility] [address] [place] [address] Dr. Jerry Frausto RPR QUANTon 04-26-2022 Rapid Plasma Reagin, Quant Non-Reactive Normal NonRea<1:1 [facility] Comment on above: Result Comment: Plea se Note: This test does not meet current guidelines for screening and diagnosis of syphilis. This test is intended for following treatment response in patients being treated for syphilis infection. To screen for syphilis infection, a reflex cascade that includes both RPR and a treponema-specific assay should be utilized, such as Treponema pallidum (Syphilis) Screening [place] (501918) or Rapid Plasma Reagin (RPR) Test With Reflex to Quantitative RPR and Confirmatory Treponema pallidum Antibodies (778656). Performed By: #### R PRQ #### [facility] [address] [place] [address] Dr. Jerry Frausto DRUG SCREEN RAPID (URINE)on 04-24-2022 AMP Negative Normal NEGATIVE [facility] Comment on above: Performed By: #### D RUGRPD #### [facility] [address] [place] [address] Dr. Jerry Frausto BAR Negative Normal NEGATIVE [facility] Comment on above: Performed By: #### D RUGRPD #### [facility] [address] [place] [address] Dr. Jerry Frausto BUP Negative Normal NEGATIVE [facility] Comment on above: Performed By: #### D RUGRPD #### [facility] [address] [place] [address] Dr. Jerry Frausto BZO Negative Normal NEGATIVE [facility] Comment on above: Performed By: #### D RUGRPD #### [facility] [address] [place], [place] [id number] Dr. Jerry Frausto NELA Negative Normal NEGATIVE [facility] Comment on above: Performed By: #### D RUGRPD #### [facility] [address] [place] [address] Dr. Jerry Frausto CUT-OFFS SEE BELOW Normal [facility] Comment on above: Result Comment: AMP (Amphetamine): 500ng/mL, BAR (Barbituates): 200 ng/mL, BZO (Benzodiazepines): 150 ng/mL, BUP (Buprenorphine): 10 ng/mL, NELA (Cocaine): 150 ng/mL, mAMP (Methamphetamine): 500 ng/mL, MTD (Methadone): 200 ng/mL, OPI (Opiates): 100 ng/mL, OXY (Oxycodone): 100 ng/mL, PCP (Phencyclidine): 25 ng/mL, PPX (Propoxyphene): 300 ng/mL, THC (Cannabinoids): 50 ng/mL, TCA (Trycyclic Antidepressants): 300 ng/mL Performed By: #### D RUGRPD #### [facility] [address] [place] [address] Dr. Jerry Frausto DRUG CUT HEADER DRUG CLASS TEST SYSTEM CUT-OFF CONCENTRATIONS ARE FOLLOWS: Normal [facility] Comment on above: Performed By: #### D RUGRPD #### [facility] [address] [place] [address] Dr. Jerry Frausto mAMP Negative Normal NEGATIVE [facility] Comment on above: Performed By: #### D RUGRPD #### [facility] [address] [place] [address] Dr. Jerry Frausto MTD Negative Normal NEGATIVE [facility] Comment on above: Performed By: #### D RUGRPD #### [facility] [address] [place] [address] Dr. Jerry Frausto OPI Negative Normal NEGATIVE [facility] Comment on above: Performed By: #### D RUGRPD #### [facility] [address] [place] [address] Dr. Jerry Frausto OXY Negative Normal NEGATIVE [facility] Comment on above: Performed By: #### D RUGRPD #### [facility] [facility] [address] [address] [address] Jerry Frausto PCP Negative Normal NEGATIVE [facility] Comment on above: Performed By: #### D RUGRPD #### [facility] [address] [address] [address] Jerry Frausto PPX Negative Normal NEGATIVE [facility] Comment on above: Performed By: #### D RUGRPD #### [facility] [address] [address] [address] Jerry Frausto TCA Negative Normal NEGATIVE [facility] Comment on above: Performed By: #### D RUGRPD #### [facility] [address] [address] [address] Jerry Frausto THC Negative Normal NEGATIVE [facility] Comment on above: Performed By: #### D RUGRPD #### [facility] [address] [place] [address] Dr. Jerry Frausto Complete Blood Count Auto Di ffon 12-13-2021 Basophils (Bld) [#/Vol] 0.0 10*3/uL Normal 0.0-0.2 [facility] Comment on above: Order Comment: Comme nt Draw at 630 am Result Comment: PERF ORMED BY: [place] [address] PATHOLOGIST NEON MOLDER LYNN COHEN M.D. Performed By: #### C BC #### [facility] [address] [place] [address] [place] Basophils/100 WBC (Bld) 0.4 % Normal . [facility] Comment on above: Order Comment: Comme nt Draw at 630 am Performed By: #### C BC #### [facility] [address] [place] [address] [place] Eosinophils (Bld) [#/Vol] 0.0 10*3/uL Normal 0.0-0.45 [facility] Comment on above: Order Comment: Comme nt Draw at 630 am Performed By: #### C BC #### [facility] [address] [place] [address] [place] Eosinophils/100 WBC (Bld) 0.2 % Normal . [facility] Comment on above: Order Comment: Comme nt Draw at 630 am Performed By: #### C BC #### [address] Erythrocyte distribution width (RBC) [Ratio] 15.7 % High 11.9-15.3 [facility] Comment on above: Order Comment: Comme nt Draw at 630 am Performed By: #### C BC #### [address] Hematocrit (Bld) [Volume fraction] 27.8 % Low 34.0-46.4 [facility] Comment on above: Order Comment: Comme nt Draw at 630 am Performed By: #### C BC #### [address] Hemoglobin (Bld) [Mass/Vol] 9.3 g/dL Low 11.8-15.4 [facility] Comment on above: Order Comment: Comme nt Draw at 630 am Performed By: #### C BC #### [address] Lymphocytes (Bld) [#/Vol] 0.9 10*3/uL Low 1.00-4.8 [facility] Comment on above: Order Comment: Comme nt Draw at 630 am Performed By: #### C BC #### [address] Lymphocytes/100 WBC (Bld) 11.5 % Normal . [facility] Comment on above: Order Comment: Comme nt Draw at 630 am Performed By: #### C BC #### [address] MCH (RBC) [Entitic mass] 29.4 pg Normal 24.7-34.3 [facility] Comment on above: Order Comment: Comme nt Draw at 630 am Performed By: #### C BC #### [address] MCV (RBC) [Entitic vol] 87.8 fL Normal 80-100 [facility] Comment on above: Order Comment: Comme nt Draw at 630 am Performed By: #### C BC #### [address] Mean Corpuscular HGB Conc 33.5 g/dL Normal 32.0-35.0 [facility] Comment on above: Order Comment: Comme nt Draw at 630 am Performed By: #### C BC #### [place] [address] [place] Monocytes (Bld) [#/Vol] 0.5 10*3/uL Normal 0.0-0.8 [facility] Comment on above: Order Comment: Comme nt Draw at 630 am Performed By: #### C BC #### [address] Monocytes/100 WBC (Bld) 6.2 % Normal . [facility] Comment on above: Order Comment: Comme nt Draw at 630 am Performed By: #### C BC #### [address] Neutrophils (Bld) [#/Vol] 6.4 10*3/uL Normal 1.8-7.7 [facility] Comment on above: Order Comment: Comme nt Draw at 630 am Performed By: #### C BC #### [address] Neutrophils/100 WBC (Bld) 81.7 % Normal . [facility] Comment on above: Order Comment: Comme nt Draw at 630 am Performed By: #### C BC #### [place] [address] [place] Nucleated RBC/100 WBC (Bld) [Ratio] 0.0 % Normal 0-0.5 [facility] Comment on above: Order Comment: Comme nt Draw at 630 am Performed By: #### C BC #### [address] Platelet mean volume (Bld) [Entitic vol] 9.9 fL Normal 6.3-10.7 [facility] Comment on above: Order Comment: Comme nt Draw at 630 am Performed By: #### C BC #### [facility] [address] Platelets (Bld) [#/Vol] 190 10*3/uL Normal 150-450 [facility] Comment on above: Order Comment: Comme nt Draw at 630 am Performed By: #### C BC #### [facility] [address] RBC (Bld) [#/Vol] 3.16 10*6/uL Low 3.60-5.00 [facility] Comment on above: Order Comment: Comme nt Draw at 630 am Performed By: #### C BC #### [facility] [address] WBC (Bld) [#/Vol] 7.9 10*3/uL Normal 4.5-11.0 [facility] Comment on above: Order Comment: Comme nt Draw at 630 am Performed By: #### C BC #### [address] Screenon 12-13-2021 Screen Negative Normal [facility] Comment on above: Result Comment: 1 dose(300mcg)of RhoGAM indicated Rhogam Workupon 12-13-2021 Rhogam Candidate Yes Normal [facility] RHOGAM DOSE POST Normal [facility] Comment on above: Result Comment: See Fetalscreen result PERFORMED BY: [place] [address] PATHOLOGIST NEON MOLDER LYNN COHEN M.D. ABO and Rh group Nom (Bld) Blood group AB Rh(D) negative Normal [facility] Comment on above: Result Comment: PERF ORMED BY: [place] [address] PATHOLOGIST NEON MOLDER LYNN COHEN M.D. COVID-19 Antigenon 2 COVID-19 Antigen Results called at 1834 on 12/12/21 Healthcare Worker?: N [place] Reference [place] Reference Negative [place] Blank COVID19 Pos Results Positive results will only be called to COVID19 Det Results Providers for the following groups of patients: COVID19 Pos Results Pre-Surgical Testing, Emergency Room, and Inpatients. [place] Blank SARS-CoV+SARS-CoV-2 (COVID-19) Ag [Presence] in Respiratory specimen by Rapid immunoassay Positive for SARS Antigen by HUY Blank Space [place] Disclaimer The [place] SARS Antigen HUY does not differentiate [place] Disclaimer between SARS-CoV and SARS-CoV-2. COVID19 Blank Space [place] Disclaimer This test was developed and its performance [place] Disclaimer characteristic determined by [employer] and [place] Disclaimer validated at [facility]. This [place] Disclaimer test has not been FDA cleared or approved. This [place] Dis[place] test has been authorized by FDA under an Emergency Use [place] Disclaimer Authorization (EUA). This test has been validated [place] Disclaimer in accordance with the FDA's Guidance Document (Policy [place] Disclaimer for Diagnostics Testing in Laboratories Certified to [place] Disclaimer Perform High Complexity Testing under CLIA prior to [place] Disclaimer Emergency Use Authorization for Coronavirus [place] Disclaimer iseas during the Public Health Emergency) [place] Disclaimer issued on November 20, 2019. This test is only authorized [place] Disclaimer for the duration of time the declaration that [place] Disclaimer circumstances exist justifying the authorization of [place] Disclaimer the emergency use of in vitro diagnostic tests for [place] Disclaimer detection of SARS-CoV-2 virus and/or diagnosis of [place] Disclaimer COVID-19 infection under section 564(b)(1) of the [place] Disclaimer Act, 21 U.S.C. 360bbb-3(b)(1), unless the [place] Disclaimer authorization is terminated or revoked sooner. PERFORMED BY: [place] [address] PATHOLOGIST NEON MOLDER LYNN COHEN M.D. Normal [facility] Comment on above: Performed By: #### R NJ W RFX #### [facility] , Complete Blood Count Auto Di ffon 12-12-2021 Basophils (Bld) [#/Vol] 0.0 10*3/uL Normal 0.0-0.2 [facility] Comment on above: Result Comment: PERF ORMED BY: [place] [address] PATHOLOGIST NEON MOLDER LYNN COHEN M.D. Performed By: #### C BC, CMP, URIC #### [address] Basophils/100 WBC (Bld) 0.3 % Normal . [facility] Comment on above: Performed By: #### C BC, CMP, URIC #### [place] [address] [place] Eosinophils (Bld) [#/Vol] 0.3 10*3/uL Normal 0.0-0.45 [facility] Comment on above: Performed By: #### C BC, CMP, URIC #### [place] [address] [place] Eosinophils/100 WBC (Bld) 4.3 % Normal . [facility] Comment on above: Performed By: #### C BC, CMP, URIC #### [place] [address] [place] Erythrocyte distribution width (RBC) [Ratio] 15.9 % High 11.9-15.3 [facility] Comment on above: Performed By: #### C BC, CMP, URIC #### [address] Hematocrit (Bld) [Volume fraction] 35.4 % Normal 34.0-46.4 [facility] Comment on above: Performed By: #### C BC, CMP, URIC #### [address] Hemoglobin (Bld) [Mass/Vol] 11.4 g/dL Low 11.8-15.4 [facility] Comment on above: Performed By: #### C BC, CMP, URIC #### [address] Lymphocytes (Bld) [#/Vol] 0.3 10*3/uL Low 1.00-4.8 [facility] Comment on above: Performed By: #### C BC, CMP, URIC #### [address] Lymphocytes/100 WBC (Bld) 5.0 % Normal . [facility] Comment on above: Performed By: #### C BC, CMP, URIC #### [address] MCH (RBC) [Entitic mass] 28.4 pg Normal 24.7-34.3 [facility] Comment on above: Performed By: #### C BC, CMP, URIC #### [address] MCV (RBC) [Entitic vol] 88.0 fL Normal 80-100 [facility] Comment on above: Performed By: #### C BC, CMP, URIC #### [address] Mean Corpuscular HGB Conc 32.2 g/dL Normal 32.0-35.0 [facility] Comment on above: Performed By: #### C BC, CMP, URIC #### [address] [place] [address] [place] Monocytes (Bld) [#/Vol] 0.6 10*3/uL Normal 0.0-0.8 [facility] Comment on above: Performed By: #### C BC, CMP, URIC #### [facility] [address] [id number] [place] Monocytes/100 WBC (Bld) 9.0 % Normal . [facility] Comment on above: Performed By: #### C BC, CMP, URIC #### [facility] [address] [place] [address] [place] Neutrophils (Bld) [#/Vol] 5.7 10*3/uL Normal 1.8-7.7 [facility] Comment on above: Performed By: #### C BC, CMP, URIC #### [facility] [address] [place] [address] [place] Neutrophils/100 WBC (Bld) 81.4 % Normal . [facility] Comment on above: Performed By: #### C BC, CMP, URIC #### [facility] [address] [place] [address] [place] Nucleated RBC/100 WBC (Bld) [Ratio] 0.0 % Normal 0-0.5 [facility] Comment on above: Performed By: #### C BC, CMP, URIC #### [facility] [address] [place] [address] [place] Platelet mean volume (Bld) [Entitic vol] 9.2 fL Normal 6.3-10.7 [facility] Comment on above: Performed By: #### C BC, CMP, URIC #### [facility] [address] [place] [address] [place] Platelets (Bld) [#/Vol] 171 10*3/uL Normal 150-450 [facility] Comment on above: Performed By: #### C BC, CMP, URIC #### [facility] [address] [place] [address] [place] RBC (Bld) [#/Vol] 4.02 10*6/uL Normal 3.60-5.00 [facility] Comment on above: Performed By: #### C BC, CMP, URIC #### [facility] [address] WBC (Bld) [#/Vol] 7.0 10*3/uL Normal 4.5-11.0 [facility] Comment on above: Performed By: #### C BC, CMP, URIC #### [facility] [address] Comprehensive Metabolic Pane albert 12-12-2021 Albumin [Mass/Vol] 2.8 g/dL Low 3.2-5.5 [facility] Comment on above: Performed By: #### C BC, CMP, URIC #### [address] Albumin/Globulin [Mass ratio] 0.8 {ratio} Normal [facility] Comment on above: Performed By: #### C BC, CMP, URIC #### [address] ALP [Catalytic activity/Vol] 78 U/L Normal 32-92 [facility] Comment on above: Performed By: #### C BC, CMP, URIC #### [address] ALT [Catalytic activity/Vol] 18 U/L Normal 10-60 [facility] Comment on above: Performed By: #### C BC, CMP, URIC #### [address] AST [Catalytic activity/Vol] 20 U/L Normal 10-42 [facility] Comment on above: Performed By: #### C BC, CMP, URIC #### [address] Bilirubin [Mass/Vol] 0.3 mg/dL Normal 0.3-1.2 [facility] Comment on above: Performed By: #### C BC, CMP, URIC #### [address] Calcium [Mass/Vol] 8.5 mg/dL Normal 8.2-10.2 [facility] Comment on above: Performed By: #### C BC, CMP, URIC #### [facility] [address] [place] [address] [place] Chloride [Moles/Vol] 101 mmol/L Normal 95-114 [facility] Comment on above: Performed By: #### C BC, CMP, URIC #### [facility] [address] CO2 [Moles/Vol] 20.3 mmol/L Low 22.0-30.0 [facility] Comment on above: Performed By: #### C BC, CMP, URIC #### [facility] [address] Creatinine [Mass/Vol] 0.58 mg/dL Normal 0.44-1.03 [facility] Comment on above: Performed By: #### C BC, CMP, URIC #### [address] Estimated GFR ( Rhonda > 60 Normal [facility] Comment on above: Result Comment: GFR estimated reference range: According to KDOQI guidelines, <60 ml/min/1.73m2 is sufficient to diagnose a patient with chronic kidney disease. Performed By: #### C BC, CMP, URIC #### [address] Estimated GFR (Non- Am > 60 Normal [facility] Comment on above: Performed By: #### C BC, CMP, URIC #### [place] [address] [place] Globulin (S) [Mass/Vol] 3.5 g/dL Normal [facility] Comment on above: Performed By: #### C BC, CMP, URIC #### [address] Glucose [Mass/Vol] 86 mg/dL Normal 70-100 [facility] Comment on above: Result Comment: [place] Glucose Reference Range is dependent on time and content of last meal. Glucose of more than 200 mg/dL in a nonstressed, ambulatory subject supports the diagnosis of Diabetes Mellitus. ADA recommended reference range Performed By: #### C BC, CMP, URIC #### [facility] [address] [id number] [place] Potassium [Moles/Vol] 3.6 mmol/L Normal 3.5-5.1 [facility] Comment on above: Performed By: #### C BC, CMP, URIC #### [facility] [address] Protein [Mass/Vol] 6.3 g/dL Normal 6.1-7.9 [facility] Comment on above: Performed By: #### C BC, CMP, URIC #### [facility] [address] Sodium [Moles/Vol] 133 mmol/L Low 136-146 [facility] Comment on above: Performed By: #### C BC, CMP, URIC #### [facility] [address] Urea nitrogen [Mass/Vol] 5 mg/dL Low 9-23 [facility] Comment on above: Performed By: #### C BC, CMP, URIC #### [facility] [address] Dipstick and Microscopicon 0 12-12-2021 Appearance (U) Clear Normal Clear [facility] Comment on above: Order Comment: Name Collection Type:: Clean-Voided Midstream Performed By: #### R NJ W RFX #### [facility] , Bacteria,Urine 1+ High None Seen [facility] Comment on above: Order Comment: Name Collection Type:: Clean-Voided Midstream Performed By: #### R NJ W RFX #### [facility] , Bilirubin,Urine Negative Normal Negative [facility] Comment on above: Order Comment: Name Collection Type:: Clean-Voided Midstream Performed By: #### R NJ W RFX #### [facility] , Color (U) Yellow Normal Yellow [facility] Comment on above: Order Comment: Name Collection Type:: Clean-Voided Midstream Performed By: #### R NJ W RFX #### [facility] , Glucose Ql (U) Normal Normal Normal [facility] Comment on above: Order Comment: Name Collection Type:: Clean-Voided Midstream Performed By: #### R NJ W RFX #### [facility] , Hyaline Casts,Urine 0-8 Normal 0-8 [facility] Comment on above: Order Comment: Name Collection Type:: Clean-Voided Midstream Result Comment: PERF ORMED BY: [address] [place] [address] PATHOLOGIST NEON MOLDER LYNN COHEN M.D. Performed By: #### R NJ W RFX #### [facility] , Ketones Ql (U) Negative Normal Negative [facility] Comment on above: Order Comment: Name Collection Type:: Clean-Voided Midstream Performed By: #### R NJ W RFX #### [facility] , Leukocyte esterase Test strip Ql (U) 1+ High Negative [facility] Comment on above: Order Comment: Name Collection Type:: Clean-Voided Midstream Performed By: #### R NJ W RFX #### [facility] , Nitrite,Urine Negative Normal Negative [facility] Comment on above: Order Comment: Name Collection Type:: Clean-Voided Midstream Performed By: #### R NJ W RFX #### [facility] , Occult Blood,Urine Negative Normal Negative [facility] Comment on above: Order Comment: Name Collection Type:: Clean-Voided Midstream Result Comment: PERF ORMED BY: [facility] [address] [place] [address] PATHOLOGIST NEON MOLDER LYNN COHEN M.D. Performed By: #### R NJ W RFX #### [facility] , pH (U) 6.0 [pH] Normal 5.0-9.0 [facility] Comment on above: Order Comment: Name Collection Type:: Clean-Voided Midstream Performed By: #### R NJ W RFX #### [facility] , Protein,Urine Negative Normal Negative [facility] Comment on above: Order Comment: Name Collection Type:: Clean-Voided Midstream Performed By: #### R NJ W RFX #### [facility] , RBC,Urine 5-9 High 0-4 [facility] Comment on above: Order Comment: Name Collection Type:: Clean-Voided Midstream Performed By: #### R NJ W RFX #### [facility] , Specificy Evangeline,Urine 1.023 Normal 1.001-1.030 [facility] Comment on above: Order Comment: Name Collection Type:: Clean-Voided Midstream Performed By: #### R NJ W RFX #### [facility] , Squamous Epithelial Cell,Urine 5-9 High 0-2 [facility] Comment on above: Order Comment: Name Collection Type:: Clean-Voided Midstream Performed By: #### R NJ W RFX #### [facility] , Urobilinogen,Urine Normal Normal Normal [facility] Comment on above: Order Comment: Name Collection Type:: Clean-Voided Midstream Performed By: #### R NJ W RFX #### [facility] , WBC,Urine 5-9 High 0-4 [facility] Comment on above: Order Comment: Name Collection Type:: Clean-Voided Midstream Performed By: #### R NJ W RFX #### [facility] , Albert 12-12-2021 L Specimen: [id number] Received: 12/13/21 Status: GIA Villegas Num: [id number] Spec Type: Surgical Subm Dr: TYLER PAIZ MD Tissues: A Placenta - 3rd Trimester (Greater than 28 weeks) (PLACENTA AND CORD) Procedures: HE Stain/5, Gross/Micro L5 Patient Age/Sex Location Account Attending Physician Jimena Cao 26/F 3S [id number] TYLER PAIZ MD SPEC NUM: [id number] RECD: 12/13/21 STATUS: GIA REShayla NUM: [id number] TAYLOR: 12/12/[address] [facility] [address]: TYLER PAIZ MD ENTERED: 12/13/21 [facility] DR: SPEC TYPE: Surgical DEPT: S ORDERED: HE Stain/5, Gross/Micro L5 ORDERED: HE Stain/5, Gross/Micro L5 Pathological Diagnosis Placenta and cord, section: - Mature ovalle placenta (weight: 584 g) with three-vessel umbilical cord - Placental membranes showing rare scattered pigment-laden macrophages - Placental disc showing subchorionic and intervillous fibrin deposition Clinical Information Term IUP, repeat C/B, covid positive, viable infant Gross Description Received in 10% neutral buffered formalin, labeled with the patient's name, number and placenta and cord is a 19.5 x 16 x 3.5 cm circular ovalle placenta. The marginally inserted dasilva, translucent membranes show a point of rupture 4.5 cm to the disc edge. The surface is dasilva and hemorrhagic and well vascularized with scattered hemorrhage, ranging from 5 cm to 6.3 cm. Eccentrically located, 2 cm to the disc edge is a 2.6 cm in length x 2 cm in diameter umbilical cord stump. 3 vessels are identified on cut surface. The maternal surface is intact and complete with no obvious missing cotyledons. The placenta is 584 g after removal of the umbilical cord and membranes. Sectioning reveals pink-red spongy parenchyma with a 1.4 cm dasilva, slightly solid and gelatinous lesion located at the base of the umbilical cord. Also received within the specimen container is a 10 x 7 x 3.5 cm aggregate of red gelatinous blood clot. [employer] sections are submitted in 5 cassettes as follows: A1 - end of umbilical cord and membrane roll A2 - Maternal end of the umbilical cord and membrane roll A3 - Central disc Specimen: [id number] Received: 12/13/21 Status: GIA Bakari Num: [id number] Spec Type: Surgical Subm Dr: TYLER PAIZ MD Tissues: A Placenta - 3rd Trimester (Greater than 28 weeks) (PLACENTA AND CORD) Procedures: HE Stain/5, Gross/Micro L5 Patient: Jimena Cao [id number] (Continued) Specimen: [id number] Received: 12/13/21 (Continued) Gross Description (Continued) Signed (signature on file) Lynn Cohen MD 12/14/21 1653 Specimen: [id number] Received: 12/13/21 Status: GIA Villegas Num: [id number] Spec Type: Surgical Subm Dr: TYLER PAIZ MD Tissues: A Placenta - 3rd Trimester (Greater than 28 weeks) (PLACENTA AND CORD) Procedures: SAMM Stain/5, Gross/Micro L5 Patient: Jimena Cao [id number] (Continued) Specimen: [id number] Received: 12/13/21 (Continued) Gross Description (Continued) A4 - Peripheral disc A5 - Lesion and surface hemorrhage (SM/JS) Microscopic Description Five glass slides with H E stained material have been examined. The microscopic findings support the above pathologic diagnosis. [id number] Specimen: [id number] Received: 12/13/21 Status: GIA Villegas Num: [id number] Spec Type: Surgical Subm Dr: TYLER PAIZ MD Tissues: A Placenta - 3rd Trimester (Greater than 28 weeks) (PLACENTA AND CORD) Procedures: HE Stain/5, Gross/Micro L5 Patient: Jimena Cao [id number] (Continued) --------- (more content not included)... Normal [facility] LeukoReduced RBCon 2 LeukoReduced RBC READY Normal [facility] OB Urine Drug Screen (NO THC )on 12-12-2021 Amphetamine Screen,Urine Negative Normal Negative [facility] Comment on above: Performed By: #### O BUDS #### [address] Barbiturate Screen,Urine Negative Normal Negative [facility] Comment on above: Performed By: #### O BUDS #### [address] Benzodiazepines Screen,Urine Negative Normal Negative [facility] Comment on above: Performed By: #### O BUDS #### [address] Cocaine Screen,Urine Negative Normal Negative [facility] Comment on above: Performed By: #### O BUDS #### [address] Opiate Screen,Urine Negative Normal Negative [facility] Comment on above: Performed By: #### O BUDS #### [address] Phencyclidine Screen, Urine Negative Normal Negative [facility] Comment on above: Result Comment: Thes e are unconfirmed results and should not be used for legal purposes. Drug Cut-Off Concentration: AMPH 1000 ng/mL PEG 200 ng/mL MARK 200 ng/mL COCM 300 ng/mL OP 300 ng/mL PCP 25 ng/mL PERFORMED BY: [place] [address] PATHOLOGIST NEON MOLDER LYNN COHEN M.D. Performed By: #### O BUDS #### [address] RPR w/rfx to Quant TP Abson 12-12-2021 RPR, Rfx Quant RPR Non-Reactive Normal Non Reactive Fi [facility] Comment on above: Result Comment: Perf ormed at: - [facility] [address] [id number] [employer] Plant Operator: Dilip Han PhD, Phone: [phone] PERFORMED BY: [place] [address] PATHOLOGIST NEON MOLDER LYNN COHEN M.D. Performed By: #### R NJ W RFX #### [facility] , [place] Ag Positiveon 12-13-19 [place] Ag Positive Positive Critically abnormal Negative [facility] Comment on above: Result Comment: This is a duplicate [place] SARS Antigen (HUY) result to be used for statistical tracking purpose only. PERFORMED BY: [place] [address] PATHOLOGIST NEON MOLDER LYNN COHEN M.D. Performed By: #### R NJ W RFX #### [facility] , Type and Screenon 12-12-2021 ABO and Rh group Nom (Bld) Blood group AB Rh(D) negative Normal [facility] Comment on above: Order Comment: Comme nt Use hold clot blood please Transfuse now? N Uric Acidon 12-12-2021 Urate [Mass/Vol] 6.4 mg/dL Normal 2.6-7.2 [facility] Comment on above: Result Comment: PERF ORMED BY: [place] [address] PATHOLOGIST NEON MOLDER LYNN COHEN M.D. Performed By: #### C BC, CMP, URIC #### [facility] [address] [place] [address] [place] Urine Cultureon 12-12-2021 Bacteria identified Cx Nom (U) 40,000 colonies/ml mixed bacterial skin contaminants 2 Days PERFORMED BY: [place] [address] PATHOLOGIST NEON MOLDER LYNN COHEN M.D. Normal [facility] Comment on above: Performed By: #### R NJ W RFX #### [facility] , Q - STREPTOCOCCUS,GROUP B CU LTUREon 12-01-2021 STREPTOCOCCUS, GROUP B CULTURE SEE NOTE Normal [facility] 9 12 [employer] Comment on above: Order Comment: [facility] Testing performed at: [employer] [facility], [address], 4 [facility], [place], [address], Animal Damage Control Agent: Ever Ramirez MD [facility] Collection Date/Time: [id number] [facility] Results Received Date/Time: [id number] [facility] Reported Date/Time: [id number] FASTING: NO Result Comment: STRE PTOCOCCUS, GROUP B CULTURE Micro Number: [id number] Test Status: Final Specimen Source: Vaginal/rectal Specimen Quality: Adequate Result: No group B Streptococcus isolated Note per CDC guidelines optimal recovery is achieved by swabbing both the lower vagina and rectum (through the anal sphincter). Performed By: #### [id number] #### [facility] Default [address] [place] [address] CBC with Auto Differentialon 11-07-2021 Absolute Eos # 0.11 [facility] th Absolute Immature Granulocyte 0.07 [employer] Absolute Lymph # 2.10 [facility] Absolute Jewell # 0.54 [facility] Basophils (Bld) [#/Vol] 10*3/uL [employer] Basophils/100 WBC (Bld) 0 % 0 - 2 % [employer] Eosinophils/100 WBC (Bld) 1 % 1 - 4 % [employer] Hematocrit (Bld) [Volume fraction] 34.1 % Low 36.3 - 47.1 % [employer] Hemoglobin.gastroin testinal spec 1 Ql (Stl) 10.6 g/dL Low 11.9 - 15.1 g/dL [employer] Immature granulocytes/100 WBC (Bld) 1 % High 0 [employer] Interpretation and review of laboratory results Abnormal [employer] Lymphocytes/100 WBC (Bld) 22 % Low 24 - 43 % [employer] MCH (RBC) [Entitic mass] 28.9 pg 25.2 - 33.5 pg [employer] MCHC (RBC) [Mass/Vol] 31.1 g/dL 28.4 - 34.8 g/dL [employer] MCV (RBC) [Entitic vol] 92.9 fL 82.6 - 102.9 fL [facility] Monocytes/100 WBC (Bld) 6 % 3 - 12 % [facility] NRBC Automated 0.0 0.0 per 100 WBC [facility] Platelet distribution width (Bld) [Ratio] 14.8 % High 11.8 - 14.4 % [facility] Platelet mean volume (Bld) [Entitic vol] 11.7 fL 8.1 - 13.5 fL [facility] Platelets (Bld) [#/Vol] 188 10*3/uL [facility] RBC (Bld) [#/Vol] 3.67 10*6/uL Low 3.95 - 5.1 1 m/uL [facility] Segmented neutrophils/100 WBC (Bld) 70 % High 36 - 65 % [facility] Segs Absolute [address] [facility] h WBC (Bld) [#/Vol] 9.4 10*3/uL [facility] CBC with Diffon 11-07-2021 Abs. Basophil <0.03 Normal 0.00-0.20 [facility] Comment on above: Performed By: #### C DP, CP #### [facility] [address] [place] [address] Dr. [place], [place] [address] Eth[employer] Plant Operator: Kali Gray MD Abs.Imm.Granulocyte 0.07 k/uL Normal 0.00-0.30 [facility] Comment on above: Performed By: #### C DP, CP #### [address] [place], [facility]83 [employer] Operator: Kali Gray MD Abs.Neutrophil (Seg) 6.52 k/uL Normal 1.50-8.10 [facility] Comment on above: Performed By: #### C DP, CP #### [facility] [address] [place] [address] Dr. [place], [facility]83 [employer] Operator: Kali Gray MD Basophils/100 WBC (Bld) 0 % Normal 0-2 [facility] Comment on above: Performed By: #### C DP, CP #### [facility] [address] [place] [address] [place] [phone] [employer] Operator: Kali Gray MD Eosinophils (Bld) [#/Vol] 0.11 10*3/uL Normal 0.00-0.44 [facility] Comment on above: Performed By: #### C DP, CP #### [facility] [address] [place] [address] Dr. [place], [facility]83 [employer] Operator: Kali Gray MD Eosinophils/100 WBC (Bld) 1 % Normal 1-4 [facility] Comment on above: Performed By: #### C DP, CP #### [address] [place] [id number] [employer] Operator: Kali Gray MD Erythrocyte distribution width (RBC) [Ratio] 14.8 % High 11.8-14.4 [facility] Comment on above: Performed By: #### C DP, CP #### [address] [place], [place] [address] [employer] Operator: Kali Gray MD Hematocrit (Bld) [Volume fraction] 34.1 % Low 36.3-47.1 [facility] Comment on above: Performed By: #### C DP, CP #### [address] [place], [facility]83 [employer] Operator: Kali Gray MD Hemoglobin (Bld) [Mass/Vol] 10.6 g/dL Low 11.9-15.1 [facility] Comment on above: Performed By: #### C DP, CP #### [address] [place], [facility]83 [employer] Operator: Kali Gray MD Immature granulocytes/100 WBC (Bld) 1 % High 0 [facility] Comment on above: Performed By: #### C DP, CP #### [address] [place] [phone] [employer] Operator: Kali Gray MD Lymphocytes (Bld) [#/Vol] 2.10 10*3/uL Normal 1.10-3.70 [facility] Comment on above: Performed By: #### C DP, CP #### [address] [place], [place] [phone] [employer] Operator: Kali Gray MD Lymphocytes/100 WBC (Bld) 22 % Low 24-43 [facility] Comment on above: Performed By: #### C DP, CP #### [address] [place], [facility]83 [employer] Operator: Kali Gray MD MCH (RBC) [Entitic mass] 28.9 pg Normal 25.2-33.5 [facility] Comment on above: Performed By: #### C DP, CP #### [address] [place], [facility]83 [employer] Operator: Kali Gray MD MCHC (RBC) [Mass/Vol] 31.1 g/dL Normal 28.4-34.8 [facility] Comment on above: Performed By: #### C DP, CP #### [address] [place], [facility]83 [employer] Operator: Kali Gray MD MCV (RBC) [Entitic vol] 92.9 fL Normal 82.6-102.9 [facility] Comment on above: Performed By: #### C DP, CP #### [address] [place], [facility]83 Eth[employer] Operator: Kali Gray MD Monocytes (Bld) [#/Vol] 0.54 10*3/uL Normal 0.10-1.20 [facility] Comment on above: Performed By: #### C DP, CP #### [address] [place] [address] [employer] Operator: Kali Gray MD Monocytes/100 WBC (Bld) 6 % Normal 3-12 [facility] Comment on above: Performed By: #### C DP, CP #### [facility] [address] [place], [place] [phone] [employer] Operator: Kali Gray MD Neutrophil (Seg) 70 % High 36-65 [facility] Comment on above: Performed By: #### C DP, CP #### [facility] [address] [place], [place] [phone] [employer] Operator: Kali Gray MD NRBC Automated 0.0 per 100 WBC Normal 0.0 [facility] Comment on above: Performed By: #### C DP, CP #### [address] [place], [place] [phone] [employer] Operator: Kali Gray MD Platelet mean volume (Bld) [Entitic vol] 11.7 fL Normal 8.1-13.5 [facility] Comment on above: Performed By: #### C DP, CP #### [address] [place], [place] 5248783 [employer] Operator: Kali Gray MD Platelets (Bld) [#/Vol] 188 10*3/uL Normal 138-453 [facility] Comment on above: Performed By: #### C DP, CP #### [address] [place], [place] [address]333383 [employer] Operator: Kali Gray MD RBC (Bld) [#/Vol] 3.67 10*6/uL Low 3.95-5.11 [facility] Comment on above: Performed By: #### C DP, CP #### [address] [place], [place] [phone] [employer] Operator: Kali Gray MD WBC (Bld) [#/Vol] 9.4 10*3/uL Normal 3.5-11.3 [facility] Comment on above: Performed By: #### C DP, CP #### [address] [place] [address] [employer] Operator: Kali Gray MD Comp Metabolic Profon 2021 (cont.) Normal [facility] Comment on above: Result Comment: Aver age GFR for 20-29 years old: 116 mL/min/1.73sq m Chronic Kidney Disease: <60 mL/min/1.73sq m Kidney failure: <15 mL/min/1.73sq m eGFR calculated using average adult body mass. Additional eGFR calculator available at: http://www.[employer]/multiple_crcl_2012.htm Performed By: #### C DP, CP #### [facility] [address] [place] [address] [employer] Operator: Kali Gray MD Albumin [Mass/Vol] 3.5 g/dL Normal 3.5-5.2 [facility] Comment on above: Performed By: #### C DP, CP #### [facility] [address] [place] [address] Dr. [place], [place] [phone] [employer] Operator: Kali Gray MD Albumin/Glob Ratio 1.3 Normal 1.0-2.5 [facility] Comment on above: Performed By: #### C DP, CP #### [facility] [address] [place], [place] 4441483 [employer] Operator: Kali Gray MD Alkaline Phos 64 U/L Normal 35-104 [facility] Comment on above: Performed By: #### C DP, CP #### [facility] [address] [place], [place] [phone] [employer] Operator: Kali Gray MD ALT [Catalytic activity/Vol] 15 U/L Normal 5-33 [facility] Comment on above: Performed By: #### C DP, CP #### [facility] [address] [place], [place] [phone] [employer] Operator: Kali Gray MD Anion gap [Moles/Vol] 10 mmol/L Normal 9-17 [facility] Comment on above: Performed By: #### C DP, CP #### [facility] [address] [place], [place] [phone] [employer] Operator: Kali Gray MD AST [Catalytic activity/Vol] 13 U/L Normal <32 [facility] Comment on above: Performed By: #### C DP, CP #### [facility] [address] [place], [place] 2398483 [employer] Operator: Kali Gray MD Bilirubin [Mass/Vol] 0.22 mg/dL Low 0.3-1.2 [facility] Comment on above: Performed By: #### C DP, CP #### [facility] [address] [place], [place] 9440583 [employer] Operator: Kali Gray MD BUN/CRE Ratio 13 Normal 9-20 [facility] Comment on above: Performed By: #### C DP, CP #### [facility] [address] [place], [place] 4336983 [employer] Operator: Kali Gray MD Calcium [Mass/Vol] 9.1 mg/dL Normal 8.6-10.4 [facility] Comment on above: Performed By: #### C DP, CP #### [facility] [address] [place], [place] [phone] [employer] Operator: Kali Gray MD Chloride [Moles/Vol] 105 mmol/L Normal 98-107 [facility] Comment on above: Performed By: #### C DP, CP #### [facility] [address] [place], [place] 5285383 [employer] Plant Operator: Kali Gray MD CO2 [Moles/Vol] 25 mmol/L Normal 20-31 [facility] Comment on above: Performed By: #### C DP, CP #### [facility] [address] [place], [place] 0743183 [employer] Operator: Kali Gray MD Creatinine [Mass/Vol] 0.52 mg/dL Normal 0.50-0.90 [facility] Comment on above: Performed By: #### C DP, CP #### [facility] [address] [place], [place] [address]552283 [employer] Operator: Kali Gray MD GFR, Amer >60 Normal >60 [facility] Comment on above: Performed By: #### C DP, CP #### [facility] [address] [place] [address] Eth[employer] Operator: Kali Gray MD GFR,non Amer >60 Normal >60 [facility] Comment on above: Performed By: #### C DP, CP #### [facility] [address] [place], [place] 7673683 [employer] Operator: Kali Gray MD Glucose [Mass/Vol] 128 mg/dL High 70-99 [facility] Comment on above: Performed By: #### C DP, CP #### [facility] [address] [place], [place] 5782283 [employer] Operator: Kali Gray MD Potassium [Moles/Vol] 3.5 mmol/L Low 3.7-5.3 [facility] Comment on above: Performed By: #### C DP, CP #### [facility] [address] [place], [place] 8949083 [employer] Operator: Kali Gray MD Protein [Mass/Vol] 6.2 g/dL Low 6.4-8.3 [facility] Comment on above: Performed By: #### C DP, CP #### [facility] [address] [place], [place] 4667983 [employer] Operator: Kali Gray MD Sodium [Moles/Vol] 140 mmol/L Normal 135-144 [facility] Comment on above: Performed By: #### C DP, CP #### [facility] [address] [place] [address] [employer] Operator: Kali Gray MD Staging: Normal [facility] Comment on above: Result Comment: Stag e 1: Some kidney damage normal GFR Stage 2: Mild kidney damage GFR 60-89 Stage 3: Moderate kidney damage GFR 30-59 Stage 4: Severe kidney damage GFR 15-29 Stage 5: Severe kidney damage GFR <15 ESRD - chronic treatment by dialysis or transplant Performed By: #### C DP, CP #### [facility] [address] [place] [address] [employer] Operator: Kali Gray MD Urea nitrogen [Mass/Vol] 7 mg/dL Normal 6-20 [facility] Comment on above: Performed By: #### C DP, CP #### [facility] [address] [place] [address] [employer] Operator: Kali Gray MD Comprehensive Metabolic Pane [facility] 11-07-2021 Albumin [Mass/Vol] 3.5 g/dL 3.5 - 5.2 g/dL [facility] Albumin/Globulin [Mass ratio] 1.3 {ratio} [facility] ALP (Bld) [Catalytic activity/Vol] 64 U/L 35 - 104 U/L [facility] ALT [Catalytic activity/Vol] 15 U/L 5 - 33 U/L [facility] Anion gap [Moles/Vol] 10 mmol/L 9 - 17 mmol/L [facility] AST [Catalytic activity/Vol] 13 U/L <32 [facility] Bilirubin [Mass/Vol] 0.22 mg/dL Low 0.3 - 1.2 mg/dL [facility] Calcium [Mass/Vol] 9.1 mg/dL 8.6 - 10. 4 mg/dL [facility] Chloride [Moles/Vol] 105 mmol/L 98 - 107 mmol/L [facility] CO2 [Moles/Vol] 25 mmol/L 20 - 31 mmol/L [facility] Creatinine [Mass/Vol] 0.52 mg/dL 0.50 - 0.90 mg/dL [facility] Free PSA/Total PSA [Mass fraction] 6.2 g/dL Low 6.4 - 8.3 g/dL [facility] GFR >60 >60 mL/min [facility] GFR Non- >60 >60 mL/min [facility] Glucose [Mass/Vol] 128 mg/dL High 70 - 99 mg/dL [facility] Interpretation and review of laboratory results Abnormal [facility] Potassium [Moles/Vol] 3.5 mmol/L Low 3.7 - 5.3 mmol/L [facility] Sodium [Moles/Vol] 140 mmol/L 135 - 144 mmol/L [facility] Urea nitrogen (BldV) [Mass/Vol] 7 mg/dL 6 - 20 mg/dL [facility] Urea nitrogen/Creatinine (Bld) [Mass ratio] 13 [facility] Drug Scr, Abuse, Uron 2021 Amphetamine(s),Ur Negative Normal NEG [facility] Comment on above: Performed By: #### Josue JUAREZ [facility] UA #### [facility] [address] [place] [address] [place] [phone] [employer] Operator: Kali Gray MD Barbiturate(s),Ur Negative Normal NEG [facility] Comment on above: Performed By: #### Josue JUAREZ [facility] U[facility] #### [facility] [address] [place] [address] Dr[place] [phone] [employer] Operator: Kali Gray MD Benzodiazepine(s) Negative Normal NEG [facility] Comment on above: Performed By: #### Josue JUAREZ [facility] UA #### [facility] [address] [place], [facility]83 Eth[employer] Plant Operator: Kali Gray MD Buprenorphrine, Ur Negative Normal NEG [facility] Comment on above: Performed By: #### Josue JUAREZ [facility] UA #### [facility] [address] [place] [address] Eth[employer] Plant Operator: Kali Gray MD Cannabinoid(s),Ur Negative Normal NEG [facility] Comment on above: Performed By: #### Josue JUAREZ [facility], UA #### [facility] [address] [place] [address] [employer] Operator: Kali Gray MD Cocaine Metabolite Negative Normal [facility] Comment on above: Performed By: #### Josue JUAREZ [facility], UA #### [facility] [address] [place] [address] [employer] Operator: Kali Gray MD Methadone Ql (U) Negative Normal NEG [facility] Comment on above: Performed By: #### Josue JUAREZ [facility], UA #### [facility] [address] [place], [place] 1204383 Eth[employer] Plant Operator: Kali Gray MD Methamphetamine, Ur Positive Abnormal NEG [facility] Comment on above: Performed By: #### Josue JUAREZ [facility], UA #### [facility] [address] [place], [place] 3187783 Eth[employer] Plant Operator: Kali Gray MD Opiate(s), Ur Negative Normal [facility] Comment on above: Performed By: #### Josue JUAREZ [facility], UA #### [facility] [address] [place] [address] Eth[employer] Plant Operator: Kali Gray MD Oxycodone, Urine Negative Normal NEG [facility] Comment on above: Performed By: #### oJsue JUAREZ [facility], UA #### [facility] [address] [place] [address] Eth[employer] Plant Operator: Kali Gray MD Phencyclidine, Ur Negative Normal NEG [facility] Comment on above: Performed By: #### Josue JUAREZ [facility], UA #### [facility] [address] [place] [address] Eth[employer] Plant Operator: Kali Gray MD Propoxyphene,Urine Negative Normal NEG [facility] Comment on above: Performed By: #### Josue JUAREZ [facility], UA #### [facility] [address] [place], [place] [phone] [employer] Operator: Kali Gray MD Tricyclic antidepressants Screen Ql (U) Negative Normal NEG [facility] Comment on above: Result Comment: Drug screen results are to be used for medical purposes only. All positive results are unconfirmed. Testing for employment or legal uses should be sent to a reference laboratory for confirmation. Performed By: #### D ANN, EDGARDO, UA #### [facility] [address] [place] [address] [employer] Operator: Kali Gray MD Laboratory - Chemistry and C hemistry - challengeon 11-07-2021 GFR/1.73 sq M.predicted MDRD (S/P/Bld) [Vol rate/Area] [facility] Comment on above: Average GFR for 20-2 9 years old: 116 mL/min/1.73sq m Chronic Kidney Disease: <60 mL/min/1.73sq m Kidney failure: <15 mL/min/1.73sq m eGFR calculated using average adult body mass. Additional eGFR calculator available at: http://www.[employer]/multiple_crcl_2012.htm Stage 1: Some kidney damage normal GFR Stage 2: Mild kidney damage GFR 60-89 Stage 3: Moderate kidney damage GFR 30-59 Stage 4: Severe kidney damage GFR 15-29 Stage 5: Severe kidney damage GFR <15 ESRD - chronic treatment by dialysis or transplant Microscopic Urinalysison - [facility] Bacteria, UA 2+ Abnormal [facility] Crystals, UA CALCIUM OXALATE Abnormal None /HPF [facility] ealth Crystals, UA 5 TO 10 Abnormal None /HPF [facility] Epithelial Cells UA 2 TO 5 [facility] Interpretation and review of laboratory results Abnormal [employer] Mucus, UA 2+ Abnormal None [facility] RBC, UA 0 TO 2 [facility] WBC, UA 0 TO 2 [facility] - [facility] Bacteria, UA 2+ Abnormal None [facility] Crystals, UA 1+ CALCIUM OXALATE Abnormal None /HPF [facility] Epithelial Cells UA 10 TO 20 /HPF [facility] Interpretation and review of laboratory results Abnormal [facility] Mucus, UA 2+ Abnormal None [facility] RBC, UA 0 TO 2 [facility] Renal Epithelial, UA 0 TO 2 0 /HPF [facility] WBC, UA 2 TO 5 0 /HPF [facility] TYPE AND SCREENon 11-07-2021 ABO/Rh Negative [facility] Antibody ID Anti-D, Passive Due To RhIG [id number] Date 11/10/2021,2359 [facility] Type + Screenon 11-07-2021 Type + Screen Sample Expiration 11/10/2021,2359 Arm Band Number [id number] ABO/Rh(D) AB NEGATIVE Antibody Screen POSITIVE Antibody Ident Anti-D, Passive Due To RhIG Normal [facility] Comment on above: Performed By: #### T YS #### [facility] [address] [place], [place] [phone] [employer] Operator: Kali Gray MD US OB 1 OR MORE FETUS LIMITE Don 11-07-2021 US OB 1 OR MORE FETUS LIMITED EXAMINATION: LIMITED OB ULTRASOUND 11/07/2021 TECHNIQUE: Transabdominal second/third trimester obstetric pelvic ultrasound was performed. HISTORY: ORDERING SYSTEM PROVIDED HISTORY: check for abruption, Rule out trauma. TECHNOLOGIST PROVIDED HISTORY: check for abruption, Rule out trauma. FINDINGS: Single intrauterine with heart rate 133 beats per minute, cephalic lie. Placenta appears right lateral. time study technologist notes that body and limb movements are present. SIMRAN 17.5, deep pocket 7.1 cm IMPRESSION: Single live intrauterine , heart rate 133 beats per minute, cephalic lie. SIMRAN 17.5 Right lateral placenta Interpreted by: Thony Smith MD Signed by: Thony Smith MD 11/07/21 Final result [facility] Single live intrauterine , heart rate 133 beats per minute, cephalic lie. SIMRAN 17.5 Right lateral placenta [facility] RIS CONSOLIDATED EXAMINATION: LIMITED OB ULTRASOUND 11/07/2021 TECHNIQUE: Transabdominal second/third trimester obstetric pelvic ultrasound was performed. HISTORY: ORDERING SYSTEM PROVIDED HISTORY: check for abruption, Rule out trauma. TECHNOLOGIST PROVIDED HISTORY: check for abruption, Rule out trauma. FINDINGS: Single intrauterine with heart rate 133 beats per minute, cephalic lie. Placenta appears right lateral. time study technologist notes that body and limb movements are present. SIMRAN 17.5, deep pocket 7.1 cm PN Thony Ashford MD - 11/07/2021 EXAMINATION: LIMITED OB ULTRASOUND 11/07/2021 TECHNIQUE: Transabdominal second/third trimester obstetric pelvic ultrasound was performed. HISTORY: ORDERING SYSTEM PROVIDED HISTORY: check for abruption, Rule out trauma. TECHNOLOGIST PROVIDED HISTORY: check for abruption, Rule out trauma. FINDINGS: Single intrauterine with heart rate 133 beats per minute, cephalic lie. Placenta appears right lateral. time study technologist notes that body and limb movements are present. SIMRAN 17.5, deep pocket 7.1 cm IMPRESSION: Single live intrauterine , heart rate 133 beats per minute, cephalic lie. SIMRAN 17.5 Right lateral placenta [employer] Work Phone: Radiology Study observation (narrative) [employer] Phone: OB 1 OR MORE FETUS LIMITE DOrdered By: Thony Smith on 11-07-2021 [employer] Work Phone: Urinalysison 11-07-2021 Bilirubin Urine Negative NEGATIVE [facility] Color, UA Yellow Yellow [facility] Glucose, Ur Negative NEGATIVE [facility] Interpretation and review of laboratory results Abnormal [facility] Nitrite, Urine Negative NEGATIVE [facility] pH, UA 6.0 [facility] Protein, UA Negative NEGATIVE [facility] Specific Evangeline, UA >1.030 High [facility] Turbidity UA Clear Clear [facility] Urine Hgb Negative NEGATIVE [facility] Urobilinogen, Urine Normal Normal [facility] Bilirubin Urine Negative NEGATIVE [facility] Color, UA Yellow Yellow [facility] Glucose, Ur Negative NEGATIVE [facility] Interpretation and review of laboratory results Abnormal [facility] Ketones Ql (U) Negative NEGATIVE [facility] Leukocyte esterase Test strip Ql (U) 1+ Abnormal NEGATIVE [facility] Nitrite, Urine Negative NEGATIVE [facility] pH, UA 6.5 [facility] Protein, UA 1+ Abnormal NEGATIVE [facility] Specific Evangeline, UA 1.020 [facility] Turbidity UA Hazy Abnormal Clear [facility] Urinalysis Comments [facility] Urine Hgb TRACE Abnormal NEGATIVE [facility] Urobilinogen, Urine Normal Normal [facility] Urinalysis, Routineon 2021 Blood, Urine Negative Normal NEG [facility] Comment on above: Performed By: #### Josue JUAREZ [facility] UA #### [facility] [address] [place] [address] [place] [place], [place] [phone] [employer] Operator: Kali rGay MD Clarity (U) Clear Normal CLEAR [facility] Comment on above: Performed By: #### Josue JUAREZ [facility], UA #### [facility] [address] [place] [address] [place] [address] [employer] Operator: Kali Gray MD PH,Ur 6.0 Normal 5.0-9.0 [facility] Comment on above: Performed By: #### Josue JUAREZ [facility] UA #### [facility] [address] [place] [address] [place] [place], [place] [phone] [employer] Operator: Kali Gray MD Protein Ql (U) Negative Normal NEG [facility] Comment on above: Performed By: #### Josue JUAREZ [facility] UA #### [address] [place] [address] [employer] Operator: Kali Gray MD Spec. Evangeline,Ur >1.030 High 1.010-1.020 [facility] Comment on above: Performed By: #### [facility] #### [facility] [address] [place] [address] [place], [place] [phone] [employer] Operator: Kali Gray MD Ketones Ql (U) 1+ Abnormal NEG [facility] Comment on above: Performed By: #### EDGARDO RODRIGUEZ UA #### [address] [place], [place] [phone] [employer] Operator: Kali Gray MD Leukocyte esterase Test strip Ql (U) Negative Normal NEG [facility] Comment on above: Performed By: #### EDGARDO RODRIGUEZ UA #### [facility] [address] [place], [place] [phone] [employer] Operator: Kali Gray MD Bilirubin, SemiQt,Ur Negative Normal NEG [facility] Comment on above: Performed By: #### U MICAO, UA #### [facility] [address] [facility] [place] [phone] [employer] Operator: Kali Gray MD Performed By: #### D [facility] #### [facility] [address] [place], [place] [phone] [employer] Operator: Kali Gray MD Blood, Urine TRACE Abnormal NEG [facility] Comment on above: Performed By: #### U MICAO, UA #### [facility] [address] [facility] [place], [place] [phone] [employer] Operator: Kali Gray MD Clarity (U) Hazy Abnormal CLEAR [facility] Comment on above: Performed By: #### U MICAO, UA #### [facility] [address] [facility] [place] [phone] [employer] Plant Operator: Kali Gray MD Color (U) Yellow Normal YEL [facility] Comment on above: Performed By: #### U MICAO, UA #### [facility] [address] [place] [address] [employer] Operator: Kali Gray MD Performed By: #### [facility] #### [facility] [address] [place] [address] [employer] Operator: Kali Gray MD Comment Normal [facility] Comment on above: Performed By: #### U MICAO, UA #### [facility] [address] [facility] [place], [place] [phone] [employer] Operator: Kali Gray MD Glucose Ql (U) Negative Normal NEG [facility] Comment on above: Performed By: #### U MICAO, UA #### [facility] [address] [place], [place] [phone] [employer] Operator: Kali Gray MD Performed By: #### D ANN [facility], UA #### [facility] [address] [place] [address] [place] [address] [employer] Operator: Kali Gray MD Ketones Ql (U) Negative Normal NEG [facility] Comment on above: Performed By: #### U MICAO, UA #### [facility] [address] [place], [place] [phone] [employer] Operator: Kali Gray MD Leukocyte esterase Test strip Ql (U) 1+ Abnormal NEG [facility] Comment on above: Performed By: #### U LYNNEO, UA #### [facility] [address] [place], [place] [phone] [employer] Operator: Kali Gray MD Nitrite,Ur Negative Normal NEG [facility] Comment on above: Performed By: #### U LYNNEO, UA #### [facility] [address] [place], [place] [phone] [employer] Operator: Kali Gray MD Performed By: #### D ANN [facility], UA #### [facility] [address] [place] [address] [place] [address] [employer] Operator: Kali Gray MD PH,Ur 6.5 Normal 5.0-8.0 [facility] Comment on above: Performed By: #### U MICAO, UA #### [facility] [address] [place], [place] [phone] [employer] Operator: Kali Gray MD Protein Ql (U) 1+ Abnormal NEG [facility] Comment on above: Performed By: #### U MICAO, UA #### [facility] [address] [place], [place] [phone] [employer] Operator: Kali Gray MD Spec. Evangeline,Ur 1.020 Normal 1.005-1.030 [facility] Comment on above: Performed By: #### Geri MTZ UA #### [facility] [address] [place], [place] 20[address] [employer] Operator: Kali Gray MD Urobilinogen,Ur Normal Normal NORM [facility] Comment on above: Performed By: #### Geri MTZ, UA #### [facility] [address] [place], [place] 486[address] [employer] Plant Operator: Kali Gray MD Performed By: #### EDGARDO RODRIGUEZ UA #### [facility] [address] [place] [phone] [employer] Operator: Kali Gray MD Urinalysis,Microon 2 Crystals LM Nom (Urine sed) CALCIUM OXALATE Abnormal NONE [facility] Comment on above: Result Comment: 5 TO 10 Performed By: #### EDGARDO RODRIGUEZ UA #### [facility] [address] [place], [facility] [employer] Operator: Kali Gray MD Epithelial cells LM Ql (Urine sed) 2 TO 5 Normal 0-25 [facility] Comment on above: Performed By: #### EDGARDO RODRIGUEZ UA #### [facility] [address] [place], [facility] [employer] Operator: Kali Gray MD Urine WBC's 0 TO 2 Normal 0-5 [facility] Comment on above: Performed By: #### EDGARDO RODRIGUEZ UA #### [facility] [address] [place] [address] [employer] Operator: Kali Gray MD ----- Normal [facility] Comment on above: Performed By: #### Geri MTZ UA #### [facility] [address] [place], [place] [phone] [employer] Operator: Kali Gray MD Performed By: #### EDGARDO RODRIGUEZ UA #### [facility] [address] [place], [place] 7468583 [employer] Operator: Kali Gray MD Bacteria 2+ Abnormal [facility] Comment on above: Performed By: #### Geri MTZ, UA #### [facility] [address] [place], [place] [phone] [employer] Plant Operator: Kali Gray MD Performed By: #### EDGARDO RODRIGUEZ UA #### [facility] [address] [place] [address] [employer] Operator: Kali Gray MD Crystals LM Nom (Urine sed) 1+ /HPF Abnormal [facility] Comment on above: Result Comment: CALC IUM OXALATE Performed By: #### Geri MTZ, UA #### [facility] [address] [place], [place] [phone] [employer] Operator: Kali Gray MD Epithelial cells LM Ql (Urine sed) 10 TO 20 Normal [facility] Comment on above: Performed By: #### Geri MTZ, UA #### [facility] [address] [place], [place] 4955790 [employer] Operator: Kali Gray MD Epithelial, Renal 0 TO 2 Normal 0 [facility] Comment on above: Performed By: #### Geri BATISTAO, UA #### [facility] [address] [place], [place] [phone] [employer] Operator: Kali Gray MD Mucus Strands 2+ Abnormal [facility] Comment on above: Performed By: #### Geri BATISTAO, UA #### [facility] [address] [place], [place] 3703290 [employer] Plant Operator: Kali Gray MD Performed By: #### EDGARDO RODRIGUEZ UA #### [facility] [address] [place], [place] 0357983 [employer] Operator: Kali Gray MD Urine RBC's 0 TO 2 Normal 0-2 [facility] Comment on above: Performed By: #### U LYNNEO, UA #### [facility] [address] [place], [place] 56[address] [employer] Plant Operator: Kali Gray MD Performed By: #### D ANN, [facility], UA #### [facility] [address] [place], [place] 1652283 [employer] Plant Operator: Kali Gray MD Urine WBC's 2 TO 5 Normal 0 [facility] Comment on above: Performed By: #### U LYNNE, UA #### [facility] [address] [place], [place] [address] [employer] Operator: Kali Gray MD Urine Drug Screenon 11-08-19 22 Amphetamine Screen, Ur Negative NEGATIVE [facility] Barbiturate Screen, Ur Negative NEGATIVE [facility] Benzodiazepine Screen, Urine Negative NEGATIVE [facility] Buprenorphine Urine Negative NEGATIVE [facility] Cannabinoid Scrn, Ur Negative NEGATIVE [facility] Cocaine Metabolite, Urine Negative NEGATIVE [facility] Interpretation and review of laboratory results Abnormal [facility] Methadone Screen, Urine Negative NEGATIVE [facility] Methamphetamine, Urine Positive Abnormal NEGATIVE [facility] Opiates, Urine Negative NEGATIVE [facility] Oxycodone Screen, Ur Negative NEGATIVE [facility] Phencyclidine, Urine Negative NEGATIVE [facility] Propoxyphene, Urine Negative NEGATIVE [facility] Tricyclic Antidepressants, Urine Negative NEGATIVE [facility] Comment on above: Drug screen results are to be used for medical purposes only. All positive results are unconfirmed. Testing for employment or legal uses should be sent to a reference laboratory for confirmation. [facility] Glucose Tolerance Test 3 Marquis levy 10-11-2021 FGLU 83 mg/dL Normal 65-99 [facility] [facility] [employer] Comment on above: Result Comment: Acco rding to ADA: Fasting Glucoe Normal 65-99 mg/dl Prediabetes 100-125 mg/dl Diabetes >/= 126 Performed By: #### G TT3H #### [facility] [address] [place], [place] [id number] GLU1H 160 mg/dL Normal [facility] Comment on above: Performed By: #### G TT3H #### [facility] [address] [place], [place] [id number] GLU2H 150 mg/dL Normal [facility] Comment on above: Performed By: #### G TT3H #### [facility] [address] [place], [place] [id number] GLU3H 107 mg/dL Normal [facility] Comment on above: Performed By: #### G TT3H #### [facility] [address] [place], [place] [id number] Complete Blood Counton 10-06 Erythrocyte distribution width (RBC) [Ratio] 14.7 % Normal 11.0-15.0 [facility] Comment on above: Performed By: #### G GLU, CBC #### [facility] [address] [place], [place] [id number] Hematocrit (Bld) [Volume fraction] 35.2 % Normal 35.0-47.0 [facility] Comment on above: Performed By: #### G GLU, CBC #### [facility] [address] [place], [place] [id number] Hemoglobin (Bld) [Mass/Vol] 11.1 g/dL Low 11.6-15.5 [facility] Comment on above: Performed By: #### G GLU, CBC #### [facility] [address] [place], [place] [id number] MCH (RBC) [Entitic mass] 28.7 pg Normal 27.0-33.0 [facility] Comment on above: Performed By: #### G GLU, CBC #### [facility] [address] [place], [place] [id number] MCHC (RBC) [Mass/Vol] 31.5 g/dL Low 32.0-36.0 [facility] Comment on above: Performed By: #### G GLU, CBC #### [facility] [address] [place], [place] [id number] MCV (RBC) [Entitic vol] 91 fL Normal 80-100 [facility] Comment on above: Performed By: #### G GLU, CBC #### [facility] [address] [place], [place] [id number] Platelet mean volume (Bld) [Entitic vol] 11.90 fL Normal 7.50-12.50 [facility] [employer] Comment on above: Performed By: #### G GLU, CBC #### [facility] [address] [place], [place] [id number] Platelets (Bld) [#/Vol] 186 10*3/uL Normal 140-400 [facility] [employer] Comment on above: Performed By: #### G GLU, CBC #### [facility] [address] [place], [place] [id number] RBC (Bld) [#/Vol] 3.87 10*6/uL Low 3.90-5.20 [facility] 12 [employer] Comment on above: Performed By: #### G GLU, CBC #### [facility] [address] [place], [place] [id number] RDW-SD 48.6 fL Normal 37.0-50.0 [facility] [employer] Comment on above: Performed By: #### G GLU, CBC #### [facility] [address] [place], [place] [id number] WBC (Bld) [#/Vol] 8.8 10*3/uL Normal 3.8-11.0 [facility] 12 [employer] Comment on above: Performed By: #### G GLU, CBC #### [facility] [address] [place], [place] [id number] Glucose - Gestational Screen on 10-06-2021 Glucose [Mass/Vol] 146 mg/dL High <135 [facility] [employer] Comment on above: Result Comment: A va lue of 135 mg/dL or greater indicates the need for a full glucose tolerance test performed in the fasting state to determine if the patient has gestational diabetes. Performed By: #### G GLU, CBC #### [facility] [address] [place], [place] [id number] [facility] echo transthoracicon [facility] echo transthoracic [facility] [place] [address] Echocardiogram Signed Patient: Jimena Cao MR#: [id number] : 1995 Acct:[id number] Age/Sex: 25 / F ADM Date: 09/26/21 Loc: Room: Type: [facility] Attending Dr: Jami Rowe DO Ordering Provider: JAMI ROWE DO Date of Service: 09/26/2103/10/1235 ECH/ECH echo transthoracic: Hx of pulmonary stenosis; related conditions, unspe Copies to: Edwin Philip MD, [facility] Weight: 285 lb Performed By: Estefanía Stephenson RDCS BSA: 2.3 m2 BP: 129/78 mmHg HR: 85 Reason For Study: Hx of pulmonary stenosis; related conditions, unspe History: Pulmonary stenosis as a child. Interpretation Summary Ejection Fraction = 55-60%. The left ventricular size, thickness and function are normal The left ventricular wall motion is normal. The pulmonic valve is normal in structure and function. There is no prior echocardiogram noted for this patient. Normal transthoracic echocardiogram. Procedure/Quality: A two-dimensional transthoracic echocardiogram with color flow and Doppler was performed. The study was technically good in quality. There is no prior echocardiogram noted for this patient. Left Ventricle: The left ventricular size, thickness and function are normal. Ejection Fraction = 55-60%. The left ventricular wall motion is normal. Left Atrium: The left atrium appears normal in size. The atrial septum appears normal. Right Atrium: The right atrium appears normal in size. Right Ventricle: The right ventricular size, thickness and function are normal. Aortic Valve: The aortic valve is normal in structure and function. No aortic regurgitation is present. Mitral Valve: The mitral valve is normal in structure and function. There is no mitral regurgitation noted. Tricuspid Valve: The tricuspid valve is normal in structure and function. No tricuspid regurgitation. Pulmonic Valve: The pulmonic valve is normal in structure and function. Arteries: The aortic root is normal size. Pericardium/Pleura: No pericardial effusion seen. There is no pleural effusion. IVC/Hepatic Viens: The inferior vena cava is normal in size, with a normal collapsibility index. Miscellaneous: No thrombus, vegetation or mass is seen. Measurements with Normals IVSd: 0.86 cm (0.7-1.1 cm)LVIDd: 4.9 cm (3.7-5.4 cm) LVPWd: 0.91 cm (0.7-1.1 cm)LVIDs: 3.5 cm (2.3-3.6 cm) LA dimension: 4.3 cm (2.3-4.0 cm)Ao root diam: 2.8 cm(2.0-3.6 cm) asc Aorta Diam: 2.7 cm(2.1-3.4cm) Doppler with Normals RVSP(TR): 30.5 mmHg (18-35mmHg) LV V1 max: 113.8 cm/sec (0.7-1.7m/s)MV E max albertina: 130.0 cm/sec(0.8-1.3m/s) MV A max albertina: 105.9 cm/sec(0.0-0.0m/s) MV E/A: 1.2 (<1.5) MMode/2D Measurements Calculations TAPSE: 2.4 cm FS: 28.2 % Ao root area: LVOT diam: 2.1 cm RV S Albertina: EDV(Teich): 6.1 cm2 LVOT area: 3.5 cm2 17.7 cm/sec 114.8 ml ESV(Teich): 52.5 ml EF(Teich): 54.3 % __ LVLd ap4: 8.3 cm SV(MOD-sp4): LAV(MOD-sp4): LA A2 area: 16.8 cm2 EDV(MOD-sp4): 88.1 ml 37.4 ml 128.0 ml LAV(MOD-sp2): LA A4 area: 16.4 cm2 LVLs ap4: 6.2 cm 41.9 ml LA length (vol): ESV(MOD-sp4): 5.8 cm 39.9 ml LA vol: 40.5 ml EF(MOD-sp4): 68.8 % LA vol index: 17.5 ml/m2 Doppler Measurements Calculations MV dec time: E/E' lat: 10.3 MV dec slope: Ao V2 max: 0.19 sec E/E' med: 11.4 170.4 cm/sec 682.5 cm/sec2 Ao max P.6 mmHg Ao mean P.6 mmHg Ao V2 mean: 123.1 cm/sec Ao V2 VTI: 29.9 cm KATE(I,D): 2.4 cm2 KATE(V,D): 2.3 cm2 __ LV V1 max PG: TV max PG: TR max albertina: 5.2 mmHg 27.0 mmHg 262.0 cm/sec LV V1 mean PG: TR max P.5 mmHg 3.0 mmHg RAP systole: 3.0 mmHg LV V1 mean: 83.6 cm/sec LV V1 VTI: 20.8 cm Transcribed By: SCV Performed At: 09/26/21 1240 Signed By: Edwin Philip MD, FACC 09/26/21 1442 [facility] NOVEL CORONAVIRUSon 08-02-20 20 NARRATIVE This test was performed using isothermal KAREN and has been approved as Emergency Use Authorization (EUA) for the qualitative detection [id number] nucleic acid. Normal [facility] SARS-COV-2 DETECTED Abnormal NOT DETECTED [facility] Comment on above: Result Comment: ENHA NCED CONTACT, AND DROPLET ISOLATION IS REQUIRED FOR INPATIENTS WITH SARS-CoV-2. QUANTIFERON TB GOLD PLUS 1 T UBEon 01-30-2020 QUANTIFERNON INCUBATION Incubation performed. Normal [facility] Comment on above: Performed By: #### L QZack HOYTQFIT #### Testing performed at [facility] QUANTIFERON-TB GOLD PLUS Negative [facility] Comment on above: Result Comment: Refe rence range: Negative PERFORMED AT [facility] Performed By: #### L QLAI ZQFIT #### Testing performed at [facility] RFLX QUANTIFERON-TB GOLD PLU Son 01-30-2020 QUANTIFERON CRITERIA Comment [facility] Comment on above: Result Comment: (NOT E) The QuantiFERON-TB Gold Plus result is determined by subtracting the Nil value from either TB antigen (Ag) tube. The mitogen tube serves as a control for the test. Performed By: #### L QFIT, ZQFIT #### Testing performed at [facility] QUANTIFERON MITOGEN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
== END 2024-09-15 10:05 | disposition home or self-care (01) ==
LOC: LAB 10:04
PROVIDERS: PCP Family Medicine; Visit Provider Obstetrics & Gynecology
DX: R19.7 Diarrhea, unspecified (principal)
CPT/HCPCS: 87045; 87046; 87150; 87177; 87209; 87427; 87493